=== PATIENT | male | born 1960 | race Two or more races ===

== ENCOUNTER 2021-06-24 12:13 | Outpatient (REF) | payer OTHER, SELFPAY ==
--- NOTE | ~2021-06-24 | XR_ITS ---
EXAMINATION: XR LUMBOSACRAL SPINE WITH OBLIQUES CLINICAL INFORMATION: Low back pain. COMPARISON: None TECHNIQUE: AP, both oblique, and lateral views of the lumbar spine. Lateral view of the lumbosacral junction. FINDINGS: There is normal lumbar lordosis. The vertebral heights, alignment and disc heights are normal. There is no visible acute fracture, dislocation or subluxation seen. On oblique views there is no pars defect or listhesis. There is minimal ventral spondylosis lumbar spine. XR/XR lumbar spine 4V min IMPRESSION: No evidence of acute fracture, dislocation or listhesis. No pars defects seen. There is minimal ventral spondylosis.
== END 2021-06-24 12:14 | disposition home or self-care (01) ==
LOC: HO.XRAY 12:13
PROVIDERS: PCP Nurse Practitioner; Visit Provider Nurse Practitioner
DX: M54.50 Low back pain, unspecified (principal)
CPT/HCPCS: 72110

== ENCOUNTER 2021-07-17 13:29 | Outpatient (REF) | payer OTHER, SELFPAY ==
--- NOTE | ~2021-07-17 | XR_ITS ---
EXAMINATION: XR HAND, RIGHT CLINICAL INFORMATION: Right hand pain. COMPARISON: None TECHNIQUE: PA, lateral, and oblique views of the right hand. FINDINGS: There is no evidence for an acute fracture or dislocation. There is degenerative change here in the MCP joints most noted in the 1st, 2nd and 3rd digit. Chronic erosion in the distal 2nd metacarpal cannot be excluded nor can a chronic erosion of the distal 5th metacarpal. Small bony excrescence dorsally off the 2nd metacarpal of uncertain etiology. This could be degenerative in nature. No osteopenia is present. No convincing evidence for an acute bony erosion. No soft tissue finding. No calcification is seen. XR/XR hand RT min 3V IMPRESSION: Evidence of degenerative changes here and I cannot exclude some chronic erosions as described. No acute finding. There is a small area of bony bulbous excrescence off the distal 2nd metacarpal dorsally of uncertain etiology. This could be degenerative in nature. If further evaluation is warranted in this patient consider MR pre and postcontrast or bone scan.
== END 2021-07-17 13:30 | disposition home or self-care (01) ==
LOC: HO.XRAY 13:29
PROVIDERS: PCP Nurse Practitioner; Visit Provider Nurse Practitioner
DX: G89.29 Other chronic pain (principal); M79.641 Pain in right hand
CPT/HCPCS: 73130

== ENCOUNTER 2021-12-05 14:00 | Outpatient (RCR) | payer OTHER, SELFPAY ==
--- NOTE | 2021-11-10 14:53 | MHC.OT.EP ---
[address] [phone] Occupational Therapy Plan of Care Date of Evaluation: 11/10/21 Diagnosis: Right hand pain; OA Assessment: 61 yo male w/ hx of OA presents w/ B/L hand pain, right worse than left. 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 On assessment, he has good hand range (with intrinsic tightness) and good strength B/L'ly, but reports pain throughout digits, mostly in right MCP and PIP, but also left D3 and D4 PIPs. He will benefit from cont;d therapy services for education of HEP and self mangement of pain and joint protection for improved day to day use. Frequency and Duration: The patient will be seen 2x/wk for for 3 weeks Short Term Goals: Ind w/ HEP Ind w/ use of heat modalities for comfort and improved joint range Pt to report decreased nighttime pain w/ use of joint compression Ind w/ activity modfication techniques Supervisor Of Communications Goals: same as above Treatment Plan: Therapeutic Exercise Therapeutic Activity Home Exercise Program Splinting Patient Education Edema Control ADL Training Paraffin Fluidotherapy MHP Joint Mobilization Soft Tissue Mobilization Kinesiotaping Electronically Signed By: LUPE Marvin/L CHT Please Sign and return to therapist. Thank you once again for your referral.
--- NOTE | 2021-12-05 14:31 | MHC.OT.DC ---
[address] [phone] F: [phone] Occupational Therapy Discharge Note Provider: WILLIE Prado Diagnosis: Right hand pain; OA Date of Surgery: Date of Evaluation: 11/10/21 Date of Discharge: Treatments to Date: 3 Cancellations to Date: No Shows to Date: 1 Discharge Status: Achieved Goals Independent with HEP Discharge Summary: Kenneth was referred to OT w/ B/L hand pain due to OA. 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 Good follow through w/ HEP an understanding of joint protection techniques. Goals met and he will continue w/ self management techniques. Electronically Signed By: Pam Aguilera OTR/L CHT Reviewed/agree with student documentation: Therapist: Please Sign and return to therapist, thank you for your referral.
== END 2021-12-05 14:32 | disposition home or self-care (01) ==
LOC: HO.OT 14:00
PROVIDERS: Visit Provider Nurse Practitioner
DX: M79.641 Pain in right hand (principal)
CPT/HCPCS: 97018; 97110; 97140; 97165

== ENCOUNTER 2023-03-08 09:16 | Outpatient (REF) | payer MEDICAID, SELFPAY ==
[2023-03-08 11:23] LABS: Hematocrit 51.4 % (42.0-52.0); Mean Corpuscular HGB Conc 31.1 g/dl (31.0-36.0); Mean Corpuscular Hemoglobin 27.1 pg (27.0-33.0); Mean Platelet Volume 11.6 fL (9.4-12.4); Platelet Count 201 X10*3/uL (160-400); Red Blood Count 5.91 X10*6/uL (4.60-5.80); Red Cell Distribution Width 14.4 % (11.0-16.0)
[2023-03-08 11:32] LABS: Estimated Average Glucose 111 mg/dL; Hemoglobin A1C 151.9602 umol/L; Hemoglobin A1c % 5.5 % (<6.0)
[2023-03-08 11:36] LABS: Rheumatoid Factor < 13.0 IU/mL (<15.0)
[2023-03-08 11:39] LABS: Alanine Aminotransferase 19 U/L (0-40); Albumin Level 4.3 g/dL (3.5-5.0); Alkaline Phosphatase 106 U/L (39-117); Anion Gap 14 (12-20); Aspartate Amino Transferase 18 U/L (5-37); Bilirubin Total 0.4 mg/dL (0.0-1.0); Blood Urea Nitrogen 12 mg/dL (9-16); C Reactive Protein < 0.10 mg/dL (< or = 0.50); Calcium 9.3 mg/dL (8.4-10.2); Carbon Dioxide 27 mmol/L (22-29); Chloride 104 mmol/L (96-108); Cholesterol 110 mg/dL (<200); Estimated Glomerular Filt Rate > 60; Glucose Random 96 mg/dL (60-115); HDL Cholesterol 34 mg/dL (>40); LDL Cholesterol Calculated 56 mg/dL (<100); Potassium 4.6 mmol/L (3.3-5.1); Sodium 140 mmol/L (135-145); Total Protein 7.6 g/dL (6.5-8.0); Triglycerides 102 mg/dL (<150)
[2023-03-08 11:50] LABS: HBsAGNum1 0.49 S/CO (0.00-0.99); Hepatitis B Surface Antigen Negative (Negative)
[2023-03-08 11:53] LABS: Syphilis Screen Nonreactive (Nonreactive)
[2023-03-08 11:54] LABS: HBS Num1 0.05 mIU/mL (0-7.99); HBc Num1 0.06 S/CO (0.00-0.79); HIV AB/AG Nonreactive (Nonreactive); HIV Num 1 0.05 S/CO (0.00-0.99); Hepatitis B Core Antibody Nonreactive (Nonreactive); ~HepC Num1 0.05 S/CO (0.00-0.79); ~Hepatitis B Surface Antibody NONREACTIVE (Nonreactive); ~Hepatitis C Antibody Nonreactive (Nonreactive)
[2023-03-08 12:01] LABS: TSH reflex Free T4 2.68 uIU/mL (0.32-4.0)
[2023-03-08 12:04] LABS: Creatinine Urine 207.63 mg/dL; Microalbum/Creatinine Ratio Ur 13.9 ug/mg cr (<30)
[2023-03-08 12:06] LABS: Folate 9.4 ng/mL (> or = 4.0); Prostate Specific Antigen 2.83 ng/mL (<0.05-4.0); Vitamin B12 449 pg/mL (200-900)
[2023-03-08 12:32] LABS: Erythrocyte Sedimentation Rate 2 MM/HR (0-15)
[2023-03-08 12:47] LABS: CT PCR NOT DETECTED (Not Detect.); NG PCR NOT DETECTED (Not Detect.)
[2023-03-09 13:29] LABS: Cyclic Citrullinated Peptide <16 UNITS
[2023-03-10 17:43] LABS: TS Negative Control Passed; TS Panel A 0; TS Panel B 0; TS Positive Control Passed; TSpotTB Negative (Negative)
== END 2023-03-08 09:17 | disposition home or self-care (01) ==
LOC: HO.HHCL 09:16
PROVIDERS: Visit Provider Student in an Organized Health Care Education/Training Program
DX: Z00.00 Encounter for general adult medical examination without abnormal findings (principal)
CPT/HCPCS: 0353U; 36415; 80053; 80061; 82043; 82570; 82607; 82746; 83036; 84153; 84443; 85027; 85652; 86140; 86200; 86431; 86481; 86704; 86706; 86780; 86803; 87340; 87389

== ENCOUNTER 2023-04-28 16:24 | Outpatient (REF) | payer MEDICAID, SELFPAY ==
--- NOTE | ~2023-04-28 | XR_ITS ---
EXAMINATION: XR RIGHT SHOULDER XR LEFT SHOULDER, XR LEFT TIBIA/FIBULA CLINICAL INFORMATION: Bilateral shoulder pain, chronic. Leg pain. COMPARISON: None available. TECHNIQUE: 4 views left shoulder. 4 views right shoulder. 2 views left lower leg. FINDINGS: LEFT LOWER LEG: Radiopaque marker placed by the technologist to indicate the area of concern indicated by the patient in the proximal third of the left leg. Degenerative changes on limited views of the knee could be evaluated with dedicated knee radiographs. No gross displaced fracture to correlate with the area of concern indicated by the patient at the proximal third of the tibia/fibula. Faint soft tissue calcifications, possibly vascular. LEFT SHOULDER: Advanced degenerative changes in the acromioclavicular joint with joint space narrowing and hypertrophic change. The bones are diffusely demineralized. Mild degenerative changes in the glenohumeral joint. No abnormal soft tissue calcifications identified adjacent to the humeral head. RIGHT SHOULDER: Advanced degenerative changes in the acromioclavicular joint with joint space narrowing and hypertrophic change. The bones are diffusely demineralized. Mild degenerative changes in the glenohumeral joint. Soft tissue calcifications along the lateral aspect of the acromion. XR/XR shoulder LT min 2V IMPRESSION: 1. Degenerative changes on limited views of the left knee could be evaluated with dedicated knee radiographs. 2. Advanced degenerative changes in bilateral acromioclavicular joints. 3. Mild degenerative changes in the glenohumeral joint. 4. No gross displaced fracture to correlate with the area of concern indicated by the patient at the proximal third of the tibia/fibula. MRI recommended for further evaluation if there is concern for fracture or other underlying pathology.
--- NOTE | ~2023-04-28 | XR_ITS ---
EXAMINATION: XR RIGHT SHOULDER XR LEFT SHOULDER, XR LEFT TIBIA/FIBULA CLINICAL INFORMATION: Bilateral shoulder pain, chronic. Leg pain. COMPARISON: None available. TECHNIQUE: 4 views left shoulder. 4 views right shoulder. 2 views left lower leg. FINDINGS: LEFT LOWER LEG: Radiopaque marker placed by the technologist to indicate the area of concern indicated by the patient in the proximal third of the left leg. Degenerative changes on limited views of the knee could be evaluated with dedicated knee radiographs. No gross displaced fracture to correlate with the area of concern indicated by the patient at the proximal third of the tibia/fibula. Faint soft tissue calcifications, possibly vascular. LEFT SHOULDER: Advanced degenerative changes in the acromioclavicular joint with joint space narrowing and hypertrophic change. The bones are diffusely demineralized. Mild degenerative changes in the glenohumeral joint. No abnormal soft tissue calcifications identified adjacent to the humeral head. RIGHT SHOULDER: Advanced degenerative changes in the acromioclavicular joint with joint space narrowing and hypertrophic change. The bones are diffusely demineralized. Mild degenerative changes in the glenohumeral joint. Soft tissue calcifications along the lateral aspect of the acromion. XR/XR shoulder RT min 2V IMPRESSION: 1. Degenerative changes on limited views of the left knee could be evaluated with dedicated knee radiographs. 2. Advanced degenerative changes in bilateral acromioclavicular joints. 3. Mild degenerative changes in the glenohumeral joint. 4. No gross displaced fracture to correlate with the area of concern indicated by the patient at the proximal third of the tibia/fibula. MRI recommended for further evaluation if there is concern for fracture or other underlying pathology.
--- NOTE | ~2023-04-28 | XR_ITS ---
EXAMINATION: XR RIGHT SHOULDER XR LEFT SHOULDER, XR LEFT TIBIA/FIBULA CLINICAL INFORMATION: Bilateral shoulder pain, chronic. Leg pain. COMPARISON: None available. TECHNIQUE: 4 views left shoulder. 4 views right shoulder. 2 views left lower leg. FINDINGS: LEFT LOWER LEG: Radiopaque marker placed by the technologist to indicate the area of concern indicated by the patient in the proximal third of the left leg. Degenerative changes on limited views of the knee could be evaluated with dedicated knee radiographs. No gross displaced fracture to correlate with the area of concern indicated by the patient at the proximal third of the tibia/fibula. Faint soft tissue calcifications, possibly vascular. LEFT SHOULDER: Advanced degenerative changes in the acromioclavicular joint with joint space narrowing and hypertrophic change. The bones are diffusely demineralized. Mild degenerative changes in the glenohumeral joint. No abnormal soft tissue calcifications identified adjacent to the humeral head. RIGHT SHOULDER: Advanced degenerative changes in the acromioclavicular joint with joint space narrowing and hypertrophic change. The bones are diffusely demineralized. Mild degenerative changes in the glenohumeral joint. Soft tissue calcifications along the lateral aspect of the acromion. XR/XR tibia fibula LT 2V IMPRESSION: 1. Degenerative changes on limited views of the left knee could be evaluated with dedicated knee radiographs. 2. Advanced degenerative changes in bilateral acromioclavicular joints. 3. Mild degenerative changes in the glenohumeral joint. 4. No gross displaced fracture to correlate with the area of concern indicated by the patient at the proximal third of the tibia/fibula. MRI recommended for further evaluation if there is concern for fracture or other underlying pathology.
== END 2023-04-28 16:25 | disposition home or self-care (01) ==
LOC: HO.XRAY 16:24
PROVIDERS: PCP Student in an Organized Health Care Education/Training Program; Visit Provider Student in an Organized Health Care Education/Training Program
DX: M25.511 Pain in right shoulder (principal); M25.512 Pain in left shoulder; G89.29 Other chronic pain; M79.605 Pain in left leg
CPT/HCPCS: 73030; 73590

== ENCOUNTER 2023-09-14 17:15 | Outpatient (REF) | payer MEDICAID, SELFPAY ==
[2023-09-14 17:32] LABS: Appearance Urine Clear; Color Urine Yellow; Glucose Urine UA >=1000 mg/dL (Negative); Leukocyte Esterase Urine Trace (Negative); Nitrite Urine Negative (Negative); PH 5.5 (5.0-9.0); Specific Gravity - Urine >= 1.030 (1.005-1.025); UMIC TRIGGER UACC YES; Urine Blood Small (1+) (Negative); Urine Ketones Negative (Negative); Urine Protein Trace mg/dL (Neg-Trace)
[2023-09-14 17:47] LABS: Bacteria Urine None Seen (None Seen); RBC Urine 0-2 /HPF (0-2); Squamous Epithelial Cell Urine 0-2 /HPF (0-2); UACC Culture Trigger YES; WBC Urine >50 /HPF (0-5)
== END 2023-09-14 17:16 | disposition home or self-care (01) ==
LOC: HO.HHCLNP 17:15
PROVIDERS: Visit Provider Student in an Organized Health Care Education/Training Program
DX: R39.15 Urgency of urination (principal)
CPT/HCPCS: 81001; 87086; 87088; 87186

== ENCOUNTER 2023-10-22 07:57 | Outpatient (REF) | payer MEDICAID, SELFPAY | END 2023-10-22 07:58 | disposition home or self-care (01) | LOC: HO.HOSX 07:57 | DX: Z13.89 Encounter for screening for other disorder (principal) ==

== ENCOUNTER 2023-12-20 11:42 | Outpatient (REF) | payer MEDICAID, SELFPAY | END 2023-12-20 11:43 | disposition home or self-care (01) | LOC: HO.HOSX 11:42 | DX: Z13.89 Encounter for screening for other disorder (principal) ==

== ENCOUNTER 2023-12-21 13:34 | Outpatient (REF) | payer MEDICAID, SELFPAY ==
--- NOTE | ~2023-12-21 | XR_ITS ---
EXAMINATION: Bilateral knee series CLINICAL INFORMATION: Pain in the left knee. Osteoarthritis right knee COMPARISON: X-ray left tibia fibula April 2023. TECHNIQUE: AP upright of both knees. Lateral and patellar views of the left knee. FINDINGS: Left knee: Mild patellofemoral arthrosis. The medial and lateral compartments are normal. No arterial calcification noted posteriorly. No effusion. Right knee Limited AP upright: The medial and lateral compartments are normal. Surrounding bone and soft tissues normal. XR/XR knee LT 3V IMPRESSION: LEFT KNEE: Mild patellofemoral arthrosis. RIGHT KNEE: Limited AP upright view. Normal. Electronically signed by: Dangelo Vora MD 01/11/2024 07:12 AM EDT
--- NOTE | ~2023-12-21 | XR_ITS ---
EXAMINATION: XR SHOULDER, RIGHT CLINICAL INFORMATION: Pain in the right shoulder COMPARISON: X-rays of the right shoulder April 2023 TECHNIQUE: AP external rotation, Grashey, scapular Y, and axillary views of the right shoulder. FINDINGS: [id number] osteoarthritis of the acromioclavicular joint. Joint: Mild osteoarthritis manifest by marginal osteophytes without joint space narrowing. Surrounding bones and soft tissues unremarkable. XR/XR shoulder RT min 2V IMPRESSION: Degenerative changes of the right shoulder. No change. Electronically signed by: Dangelo Vora MD 01/11/2024 07:09 AM EDT
--- NOTE | ~2023-12-21 | XR_ITS ---
EXAMINATION: Bilateral knee series CLINICAL INFORMATION: Pain in the left knee. Osteoarthritis right knee COMPARISON: X-ray left tibia fibula April 2023. TECHNIQUE: AP upright of both knees. Lateral and patellar views of the left knee. FINDINGS: Left knee: Mild patellofemoral arthrosis. The medial and lateral compartments are normal. No arterial calcification noted posteriorly. No effusion. Right knee Limited AP upright: The medial and lateral compartments are normal. Surrounding bone and soft tissues normal. XR/XR knee RT 3V IMPRESSION: LEFT KNEE: Mild patellofemoral arthrosis. RIGHT KNEE: Limited AP upright view. Normal. Electronically signed by: Dangelo Vora MD 01/11/2024 07:12 AM EDT
== END 2023-12-21 13:35 | disposition home or self-care (01) ==
LOC: HO.HOSX 13:34
PROVIDERS: PCP Student in an Organized Health Care Education/Training Program
DX: M25.562 Pain in left knee (principal); M25.511 Pain in right shoulder; M17.11 Unilateral primary osteoarthritis, right knee
CPT/HCPCS: 73030; 73562

== ENCOUNTER 2023-12-30 09:44 | Outpatient (REF) | payer MEDICAID, SELFPAY ==
[2023-12-30 11:50] LABS: Alanine Aminotransferase 15 U/L (0-40); Albumin Level 4.1 g/dL (3.5-5.0); Alkaline Phosphatase 109 U/L (39-117); Anion Gap 10 (12-20); Aspartate Amino Transferase 17 U/L (5-37); Bilirubin Total 0.6 mg/dL (0.0-1.0); Blood Urea Nitrogen 12 mg/dL (9-16); Calcium 9.2 mg/dL (8.4-10.2); Carbon Dioxide 26 mmol/L (22-29); Chloride 108 mmol/L (96-108); Cholesterol 98 mg/dL (<200); Estimated Glomerular Filt Rate > 60; Glucose Random 91 mg/dL (60-115); HDL Cholesterol 35 mg/dL (>40); LDL Cholesterol Calculated 43 mg/dL (<100); Sodium 140 mmol/L (135-145); Total Protein 7.1 g/dL (6.5-8.0); Triglycerides 100 mg/dL (<150)
[2023-12-30 12:17] LABS: Creatinine Urine 125.49 mg/dL; Microalbum/Creatinine Ratio Ur 14.3 ug/mg cr (<30)
[2023-12-30 12:18] LABS: Estimated Average Glucose 114 mg/dL; Hemoglobin A1c % 5.6 % (<6.0)
[2023-12-30 12:25] LABS: Folate 12.6 ng/mL (> or = 4.0); Vitamin B12 446 pg/mL (200-900)
== END 2023-12-30 09:45 | disposition home or self-care (01) ==
LOC: HO.HHCL 09:44
PROVIDERS: Visit Provider Student in an Organized Health Care Education/Training Program
DX: E11.69 Type 2 diabetes mellitus with other specified complication (principal); E78.5 Hyperlipidemia, unspecified
CPT/HCPCS: 36415; 80053; 80061; 82043; 82570; 82607; 82746; 83036

== ENCOUNTER 2024-01-07 10:03 | Outpatient (AMB) | payer MEDICAID, SELFPAY ==
--- NOTE | 2024-01-07 10:09 | MHC.OFFVIS ---
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 Pt states the shoulder pain started years ago with no known injury. Pt states his right shoulder is worse than his left. Pt denies any previous surgeries on his shoulders but states he did have 1 cortisone injection many years which he states only gave him relief for about a week. Pt states his shoulders are more painful when he lifts his arms and at night time when he is sleeping. 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 Patient reports no known injury at the onset of his pain. Patient reports that any heavy lifting or overhead motion exacerbates his pain, and that rest improves it. Patient reports that he did previously have an injection in his right shoulder, with minimal relief. Patient reports that he has tried taking Tylenol and ibuprofen, with minimal effect. The patient also states that his pain worsens at night. Patient has not attempted physical therapy for his shoulders. No numbness or tingling in bilateral upper extremities. No other acute complaints or concerns at this time Review of Systems Const All systems reviewed & are unremarkable except as noted in HPI and below Physical Exam Extrem Other: On inspection, there is no visible deformity of bilateral shoulders No erythema, ecchymosis, evidence of infection noted No lacerations, abrasions, open areas Patient does report tenderness to palpation of the superior aspect of bilateral shoulders, particularly over the AC joint No tenderness to palpation over the greater tuberosity, clavicle shaft, proximal humerus The patient is able to forward flex the shoulders to 100 degrees without difficulty Patient is able to abduct bilateral shoulders to 90 degrees without difficulty Patient can externally rotate bilaterally the shoulders to approximately 50-60 degrees but experiences pain of the extremes of range of motion Negative empty can bilaterally Negative belly press bilaterally Negative lift-off test bilaterally Positive Arora bilaterally, more discomfort on the right Results Reviewed Results Reviewed: X-rays obtained in the office today and independently reviewed by me, Hieu Verdugo PA-C, demonstrate moderate to severe degenerative changes of bilateral acromioclavicular joints. Assessment & Plan Assessment & Plan (1) Bilateral acromioclavicular joint arthritis: Code(s): M19.011 - Primary osteoarthritis, right shoulder; M19.012 - Primary osteoarthritis, left shoulder Category: Medical (2) Impingement syndrome of both shoulders: Code(s): M75.41 - Impingement syndrome of right shoulder; M75.42 - Impingement syndrome of left shoulder Category: Medical Plan 1. Impingement syndrome of bilateral shoulders 2. Acromioclavicular joint arthritis of bilateral shoulders Ongoing for approximately 2-3 years Patient is educated about this condition The patient is educated about the typical recovery course, as well as the treatment options available Patient is not interested in another injection at this time, as he only felt relief for approximately 1 week from previous injection Patient would also like to hold off on any surgery for as long as possible, as well as any further imaging Due to this, the patient is referred to physical therapy for impingement syndrome and AC joint arthritis of bilateral shoulders Patient is amenable to this plan Patient will follow-up in 6-8 weeks after starting PT for reassessment and discussion of further treatment options if necessary, sooner with any acute concerns Orders: Orders PT Evaluation and Treatment 01/07/24 M19.011 - Primary osteoarthritis, right shoulder, M19.012 - Primary osteoarthritis, left shoulder, M75.41 - Impingement syndrome of right shoulder, M75.42 - Impingement syndrome of left shoulder Coding Level of Care Code New Pt Level 3 (04079) Diagnoses Bilateral acromioclavicular joint arthritis M19.011; M19.012 Impingement syndrome of both shoulders M75.41; M75.42
== END 2024-01-07 10:30 | disposition home or self-care (01) ==
PROVIDERS: PCP Student in an Organized Health Care Education/Training Program
DX: M19.011 Primary osteoarthritis, right shoulder (principal); M19.012 Primary osteoarthritis, left shoulder; M75.41 Impingement syndrome of right shoulder; M75.42 Impingement syndrome of left shoulder
CPT/HCPCS: 99203

== ENCOUNTER → 2024-01-07 10:03 | Outpatient (BNVA) | payer MEDICAID, SELFPAY | PROVIDERS: PCP Student in an Organized Health Care Education/Training Program | DX: M19.011 Primary osteoarthritis, right shoulder (principal); M19.012 Primary osteoarthritis, left shoulder; M75.41 Impingement syndrome of right shoulder; M75.42 Impingement syndrome of left shoulder | CPT/HCPCS: 99212 ==

== ENCOUNTER 2024-01-14 10:25 | Outpatient (REF) | payer MEDICAID, SELFPAY ==
--- NOTE | ~2024-01-14 | XR_ITS ---
EXAMINATION: XR KNEE, RIGHT XR KNEE, LEFT CLINICAL INFORMATION: M17.11 - Unilateral primary osteoarthritis, right knee ; bilateral knee pain. COMPARISON: 12/21/2023. TECHNIQUE: 3 views of each knee. FINDINGS: RIGHT KNEE: No fracture, dislocation, or focal bony abnormality. Normal bone mineralization. There is mild tricompartmental osteoarthrosis present with mild tricompartmental joint space narrowing, mild spurring of the tibial spines, and mild marginal productive osteophytes present. There is normal alignment. No joint effusion. Normal soft tissues. LEFT KNEE: No fracture, dislocation, or focal bony abnormality. Normal bone mineralization. There is mild tricompartmental osteoarthrosis present with mild tricompartmental joint space narrowing, mild spurring of the tibial spines, and mild marginal productive osteophytes present. There is normal alignment. No joint effusion. Normal soft tissues. XR/XR knee LT 3V IMPRESSION: 1. Both knees demonstrate a relatively symmetric bilateral tricompartmental osteoarthrosis. 2. No joint effusion. 3. No acute findings. Electronically signed by: Heber Ortiz MD 03/26/2024 09:46 PM EST
--- NOTE | ~2024-01-14 | XR_ITS ---
EXAMINATION: XR SHOULDER, LEFT CLINICAL INFORMATION: M25.512 - Pain in left shoulder COMPARISON: 04/28/2023. TECHNIQUE: Three views of the left shoulder. FINDINGS: No fracture, dislocation, or suspicious bone lesion. Normal alignment. The glenohumeral joint has a normal appearance. The AC joint demonstrates moderate hypertrophic spurring with mild undersurface spurring. There are small subacromial spurs as well. There is mild narrowing of the subacromial space due to the presence of spurs. Cannot exclude outlet stenosis. The Grashey wall view may suggest a significant rotator cuff tear. Remainder of the bony and soft tissue structures appear normal. XR/XR shoulder LT min 2V IMPRESSION: -No acute findings left shoulder. -Degenerative AC joint changes with subacromial spurring, and findings which may suggest significant rotator cuff tear. Electronically signed by: Heber Ortiz MD 03/26/2024 09:39 PM [facility]
--- NOTE | ~2024-01-14 | XR_ITS ---
EXAMINATION: XR KNEE, RIGHT XR KNEE, LEFT CLINICAL INFORMATION: M17.11 - Unilateral primary osteoarthritis, right knee ; bilateral knee pain. COMPARISON: 12/21/2023. TECHNIQUE: 3 views of each knee. FINDINGS: RIGHT KNEE: No fracture, dislocation, or focal bony abnormality. Normal bone mineralization. There is mild tricompartmental osteoarthrosis present with mild tricompartmental joint space narrowing, mild spurring of the tibial spines, and mild marginal productive osteophytes present. There is normal alignment. No joint effusion. Normal soft tissues. LEFT KNEE: No fracture, dislocation, or focal bony abnormality. Normal bone mineralization. There is mild tricompartmental osteoarthrosis present with mild tricompartmental joint space narrowing, mild spurring of the tibial spines, and mild marginal productive osteophytes present. There is normal alignment. No joint effusion. Normal soft tissues. XR/XR knee RT 3V IMPRESSION: 1. Both knees demonstrate a relatively symmetric bilateral tricompartmental osteoarthrosis. 2. No joint effusion. 3. No acute findings. Electronically signed by: Heber Ortiz MD 03/26/2024 09:46 PM [facility]
== END 2024-01-14 10:26 | disposition home or self-care (01) ==
LOC: HO.HOSX 10:25
PROVIDERS: PCP Student in an Organized Health Care Education/Training Program
DX: M25.512 Pain in left shoulder (principal); M17.11 Unilateral primary osteoarthritis, right knee; M25.562 Pain in left knee; M17.0 Bilateral primary osteoarthritis of knee
CPT/HCPCS: 20610; 73030; 73562; 99212; J1010

== ENCOUNTER → 2024-01-14 10:29 | Outpatient (BNV) | payer MEDICAID, SELFPAY | PROVIDERS: PCP Student in an Organized Health Care Education/Training Program; Visit Provider Radiology Diagnostic Radiology | DX: M17.0 Bilateral primary osteoarthritis of knee (principal); M25.512 Pain in left shoulder | CPT/HCPCS: 73030; 73562 ==

== ENCOUNTER 2024-01-14 11:09 | Outpatient (AMB) | payer MEDICAID, SELFPAY ==
--- NOTE | 2024-01-14 11:13 | A.OFFVIS_ITS ---
Intake Visit Reasons: New Prob - B/L knee pain Intake Note: Kenneth is a 63 year old male who presents today for a new problem visit for her bilateral knee pain. Patient reports his pain has been going on for many years. He has difficulty with ambulation, standing, sleeping and kneeling down, if he is kneeling for too long he has to ask for help to get up. He expresses his pain on the anterior and medial aspect of his knee. Tylenol and ibuprofen do not provide adequate relief. Denies recent injury or any kind of medical treatment of bilateral knees. Hx of DM. Health Policy Nurse Required: Yes Health Policy Nurse Language: Biology Specialist Name: [id number] Allergies No Known Allergies Allergy (Verified 01/14/24 13:06) HPI HPI New Prob - B/L knee pain: Details: Patient is a 63-year-old male who presents for evaluation of bilateral knee pain, left worse than right, ongoing for ?many years? the patient reports that this pain makes it difficult for him to ambulate, makes it difficult to rise from a seated position, and increases in pain wth prolonged ambulation or standing. Patient also reports that kneeling down is a part of what he does for work, and then he often has to ask for help or getting up due to his knee pain and stiffness. Patient reports that he has been taking Tylenol and ibuprofen, and that the relief he gets from this is not adequate. Patient denies any insult or injury to the bilateral knees that began this pain. 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 Patient is able to extend the left knee to 0 degrees and flex to approximately 120 degrees but reports discomfort with the extremes of range of motion No ligamentous laxity noted Distal sensation intact Capillary refill brisk Negative So's bilaterally Office Procedures Joint Injection/Aspiration Joint Injection/Aspiration Primary Site: left knee Prep: site was prepped using aseptic technique, ethochloride spray was applied and injection warnings given Injected: 40 mg of, DepoMedrol, with 8 mL of and 1% plain lidocaine Approach Used: anterolateral Procedure: The patient tolerated the procedure well, but had some pain with the injection and there was some relief with the local anesthesia Coding 93787 - Large joint Procedure code (CPT) selection complete Results Reviewed Results Reviewed: X-rays obtained in the office today and independently reviewed by me, Hieu Verdugo PA-C, demonstrate moderate degenerative changes of bilateral knees, worse on the left. Assessment & Plan Assessment & Plan (1) Osteoarthritis of knees, bilateral: Code(s): M17.0 - Bilateral primary osteoarthritis of knee Category: Medical Plan 1. Osteoarthritis of left knee Patient is educated about this condition Patient is educated about the treatment options available The risks and benefits of a steroid injection including but not limited to risk of damage to blood vessels, nerves, tendons, infection, skin bleaching, failure to improve symptoms, increased pain, and possible need for further injections or other intervention were discussed with the patient and the patient wishes to proceed with the steroid injection. Once consent was obtained, I aseptically prepped the area over the anterolateral joint line of the L knee. I then injected the area over the lateral epicondyle with a combination of 40[80/40] mg of dexamethasone and 8 mL of 1% lidocaine. The patient tolerated the procedure well with no complications. If the patient continues to experience symptoms over the following few weeks or months, they can make an appointment to return and discuss alternative treatment measures, such as physical therapy. Of note, the patient did experience a syncopal episode after injection, and the patient states that he had not eaten anything today, so this was likely due to low blood sugar, in combination with fear of needles. Patient was transported to the emergency department after this syncopal episode for further evaluation Follow-up prn Orders: Orders XR knee LT 3V 01/14/24 M25.562 - Pain in left knee XR knee RT 3V 01/14/24 M17.11 - Unilateral primary osteoarthritis, right knee Coding Level of Care Code Est Pt Level 3 (73876) Diagnoses Osteoarthritis of knees, bilateral M17.0 CPT Codes Coding - 42193 Large joint: 34358 - Large joint ([id number])
== END 2024-01-14 12:24 | disposition home or self-care (01) ==
PROVIDERS: PCP Student in an Organized Health Care Education/Training Program
DX: M17.0 Bilateral primary osteoarthritis of knee (principal)
CPT/HCPCS: 20610; 99213

== ENCOUNTER 2024-01-14 12:51 | Emergency (ER) | payer MEDICAID, SELFPAY ==
[2024-01-14 13:04] VITALS: BP 112/70; BP 133/70; PULSE 47; PULSE 48; RESP 12; TEMP 36.4; O2SAT 100; O2SAT 93; BMI 27.8
--- NOTE | 2024-01-14 13:09 | ECG_ITS ---
Test Reason : KOTA Blood Pressure : / mmHG Vent. Rate : 048 BPM Atrial Rate : 048 BPM P-R Int : 176 ms QRS Dur : 104 ms QT Int : 480 ms P-R-T Axes : 025 013 067 degrees QTc Int : 428 ms Sinus bradycardia Minimal voltage criteria for LVH, may be normal variant ( Tripp product ) Septal infarct , age undetermined Abnormal ECG When compared with ECG of 15-JAN-2005 14:37, Septal infarct is now Present Referred By: Generic ED Physician Electronically Signed By:ALEXANDER OTRRES
[2024-01-14 14:21] VITALS: BP 114/70; PULSE 48; RESP 18; TEMP 36.4; O2SAT 96
--- NOTE | 2024-01-14 14:23 | ED_ITS ---
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 He notes after the dose he felt weak, dizzy and felt like he was going to pass out. His symptoms are gone he has had this many times before. He has no symptoms now even with HR in 50s. He states he wants to go home and eat but agrees to some work up. No preceding CP/SOB, recent illness. MD Complaint: generalized weakness (near syncope) Onset (ago): hour(s) (1) Duration: now resolved Location: generalized Migration: none Severity: moderate Relieving factors: rest Exacerbating factors: other (after seeing needle ) Context: history of similar Associated symptoms: denies other symptoms Related Data Home Medications ?Medication ?Instructions ?Recorded ?Confirmed aspirin 81 mg chewable tablet 1 tab PO QAM 01/07/24 atorvastatin 80 mg tablet 80 mg PO QAM 01/07/24 empagliflozin 10 mg tablet 10 mg PO QAM 01/07/24 (Jardiance) famotidine 20 mg tablet 20 mg PO DAILY PRN indigestion 01/07/24 gabapentin 300 mg capsule 300 mg PO BEDTIME 01/07/24 lisinopril 10 mg tablet 10 mg PO QAM 01/07/24 metformin 500 mg tablet,extended 500 mg PO QPM 01/07/24 release 24 hr tamsulosin 0.4 mg capsule 0.4 mg PO BEDTIME 01/07/24 Allergies Allergy/AdvReac Type Severity Reaction Status Date / Time No Known Allergies Allergy Verified 01/14/24 13:06 Review of Systems Review of Systems: Constitutional : No Fever, No Chills, No Fatigue ENT/Mouth : No sore throat, No Rhinorrhea Eyes: No Eye Pain, No Swelling, No Redness Cardiovascular : No Chest Pain, No SOB, No Dyspnea on Exertion Respiratory : No Cough, No Sputum Gastrointestinal : No Nausea, No Vomiting, No Diarrhea, No abdominal Pain Genitourinary : No Dysuria, No Urinary Frequency, No Hematuria, Musculoskeletal : No joint pain, No Myalgias, No Joint Swelling Skin : No Skin Lesions, No rash Neuro : No Weakness, No Numbness, No Dizziness, no Headache Psych : No Anxiety/Panic, No Depression Heme/Lymph: No Bruising, No Bleeding,No Lymphadenopathy Endocrine : No Polyuria, No Polydipsia All other systems reviewed and are negative [facility] Past Medical History Attestation statement: The following information was validated with the patient. 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 Oriented X3. No acute distress. Eyes: Pupils equal, round and reactive to light. ENT: Pharynx normal. Neck: Normal inspection. Neck supple. CVS: Normal heart rate and rhythm. Pulses normal. Respiratory: No respiratory distress. Breath sounds normal. Abdomen: Soft and nontender. Skin: Skin warm and dry. Normal skin color. Normal skin turgor. Extremities: No lower extremity edema. No calf ttp Neuro: Oriented X 3. No motor deficit. No sensory deficit. Course Course Course Narrative: HR likely chronic normal BP and no symptoms Medical Decision Making Medical Decision Making MDM Narrative: 63 yo male with PMH of HLD, CAD, HTN, arthritis, DM, BPH, GERD here with c/o feeling weak and dizzy after having L knee coritsone injection done at this time will need basic labs and EKG states this happens all the time with needles, no illness, GIB and no CP/SOB. Differential Diagnosis Differential Diagnoses: The differential diagnosis associated with the presentation includes anxiety, near syncope Admission/Observation Consideration of admission/observation: Escalation of care including admission/observation considered work up negative stable for DC Lab Data [facility] Lab Attestation statement: I reviewed the patient's lab results. Independent Interpretation I performed an independent interpretation of an: EKG Interpretation: Rate: 48 Rhythm: sinus bradycardia Grulla: normal Normal P waves. Normal DAMARIS. Normal QRS complex. ST T wave : no BINA, inverted t wave aVL qTC: 428 prior studies: no prior The study has been interpreted contemporaneously by me. . External Record Review External record reviewed: Office record Discharge Plan Discharge Clinical Impression: Near syncope Patient Disposition: Home, Self-Care Instructions: Syncope (ED) Additional Instructions: labs reassuring rest and stay hydrated return for any worsening symptoms or concerns Prescriptions: No Action metformin 500 mg tablet extended release 24 hr 500 mg PO QPM Jardiance 10 mg tablet 10 mg PO QAM aspirin 81 mg tablet,chewable 1 tab PO QAM gabapentin 300 mg capsule 300 mg PO BEDTIME tamsulosin 0.4 mg capsule 0.4 mg PO BEDTIME lisinopril 10 mg tablet 10 mg PO QAM atorvastatin 80 mg tablet 80 mg PO QAM famotidine 20 mg tablet 20 mg PO DAILY PRN (Reason: indigestion) Print Language: Tajik
[2024-01-14 14:50] VITALS: BP 111/65; PULSE 57
[2024-01-14 14:52] VITALS: BP 119/64; PULSE 58
[2024-01-14 14:53] VITALS: BP 118/65; PULSE 57
[2024-01-14 14:53] LABS: MANUAL DIFF FLAG NO
[2024-01-14 14:54] LABS: Basophils Percent Auto 0.4 % (0-2); Eosinophils Absolute Auto 0.1 X10*3/uL (0.0-0.4); Eosinophils Percent Auto 1.1 % (0-4); Hematocrit 46.9 % (42.0-52.0); Hemoglobin 15.2 g/dl (14.0-18.0); Imm Gran Abs Auto 0.05 X10*3/uL (0.00-0.03); Imm Gran Pct Auto 0.5 % (0.0-0.4); Lymphocytes Absolute Auto 1.2 X10*3/uL (1.2-4.9); Lymphocytes Percent Auto 11.9 % (20-40); Mean Corpuscular HGB Conc 32.4 g/dl (31.0-36.0); Mean Corpuscular Hemoglobin 27.5 pg (27.0-33.0); Mean Corpuscular Volume 84.8 fL (80.0-98.0); Mean Platelet Volume 10.9 fL (9.4-12.4); Monocytes Absolute Auto 0.5 X10*3/uL (0.1-1.2); Monocytes Percent Auto 5.1 % (2-11); Neutrophils Absolute Auto 8.5 x10*3/uL (2.0-8.3); Platelet Count 156 X10*3/uL (160-400); Red Blood Count 5.53 X10*6/uL (4.60-5.80); Red Cell Distribution Width 14.4 % (11.0-16.0); White Blood Count 10.5 X10*3/uL (4.8-10.8)
[2024-01-14 15:14] LABS: Alanine Aminotransferase 21 U/L (0-40); Albumin Level 4.1 g/dL (3.5-5.0); Alkaline Phosphatase 112 U/L (39-117); Anion Gap 11 (12-20); Aspartate Amino Transferase 18 U/L (5-37); Bilirubin Direct 0.3 mg/dL (0.0-0.5); Bilirubin Total 0.9 mg/dL (0.0-1.0); Blood Urea Nitrogen 16 mg/dL (9-16); C Reactive Protein 0.28 mg/dL (< or = 0.50); Calcium 9.5 mg/dL (8.4-10.2); Carbon Dioxide 26 mmol/L (22-29); Chloride 107 mmol/L (96-108); Creatinine Clr Calc Pharmacy 94.6; Estimated Glomerular Filt Rate > 60; Glucose Random 135 mg/dL (60-115); Lipase 28 U/L (8-78); Magnesium 2.3 mg/dL (1.6-2.6); Potassium 3.7 mmol/L (3.3-5.1); Sodium 140 mmol/L (135-145); Total Protein 7.2 g/dL (6.5-8.0)
[2024-01-14 15:20] LABS: B Type Natriuretic Peptide 17 pg/mL (<100)
[2024-01-14 15:22] LABS: Troponin-I High Sensitivity < 2.7 ng/L (<3.5-35.0)
[2024-01-14 15:33] LABS: Influenza A PCR NEGATIVE (Negative); Influenza B PCR NEGATIVE (Negative); Resp Syncy Virus RNA Qual PCR NEGATIVE (Negative); SARS COV2 PCR INHOUSE NEGATIVE (Negative)
[2024-01-14 16:10] VITALS: BP 114/73; PULSE 60; RESP 16; TEMP 36.4; O2SAT 98
== END 2024-01-14 16:14 | disposition home or self-care (01) ==
PROVIDERS: Emergency Provider Emergency Medicine; PCP Student in an Organized Health Care Education/Training Program
DX: R55 Syncope and collapse (principal); R00.1 Bradycardia, unspecified; R06.02 Shortness of breath; Z03.818 Encounter for observation for suspected exposure to other biological agents ruled out; Z79.899 Other long term (current) drug therapy
CPT/HCPCS: 0241U; 36415; 80048; 80076; 83690; 83735; 83880; 84443; 84484; 85025; 86140; 93005; 99283; 99284

== ENCOUNTER 2024-02-01 10:45 | Outpatient (AMB) | payer MEDICAID, SELFPAY ==
--- NOTE | 2024-02-01 10:46 | A.OFFVIS_ITS ---
Vital Signs 02/01/24 10:47 Height 5 ft 8 in Weight 182 lb BMI 27.7 Intake Visit Reasons: New prob- Left hand catching Intake Note: Kenneth is a 63 year old right hand dominant male who presents today with a new problem of LEFT middle finger and LEFT ring finger locking that began about 3 years ago. Patient states it is painful to make a closed fist. Denies numbness and tingling. Has not tried braces, injections, or OT. Denies prior surgeries to the LEFT hand. He reports a LEFT ring finger injury sustained while playing basketball about 40 years ago. Patient is not interested in injections today. 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 He finds himself dropping items. Patient states he has not had an EMG done for upper extremities. Welfare Administrator Required: No Allergies No Known Allergies Allergy (Verified 02/01/24 10:58) HPI HPI New prob- Left hand catching: Details: Kenneth is a 63 year old right hand dominant Diabetic man who presents with complaints of left hand locking. He complains of painful catching of the left middle & ring fingers. He says this occurs when trying to make a fist after his fingers were extended. he denies any locking when he has made a fist. He reports pain when trying to make a fist and says this limits his function. He says this has been present for ~3 years now and he denies any prior treatment options. He denies any prior treatment, and denies any NCS. 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 Review of Systems Const All systems reviewed & are unremarkable except as noted in HPI and below Physical Exam Vital Signs: BMI result Body Mass Index 27.7 Const General: cooperative, healthy appearing and no acute distress Orientation/consciousness: patient oriented x3 HEENT Head: Yes normocephalic and Yes atraumatic Eyes EOM: EOMs intact bilaterally Resp Effort & Inspection: normal respiratory effort and able to speak in complete sentences Cardio Jugular venous distension: no JVD Skin General skin exam: turgor normal Rashes: no rashes Neuro General: patient oriented x3 Extrem Other: Evaluation of Bilateral Upper Extremity: The patient is alert, oriented, and in no acute distress Neuro: Median, Ulnar, Radial nerves motor and sensory intact and sensation is normal to the tips of all digits Vascular: Cap refill brisk ROM: He can make a fist and extend all his digits Visible & palpable locking & catching of the left middle & ring fingers These are not trigger fingers. He has some dorsal subluxation of the lateral bands at the PIP joint with full extension/mild hyper extension of the PIP joints. The PIP joints are not visibly hyper extended, however the dorsal subluxation of the lateral bands then makes it difficult for him to initiate flexion actively at the PIP joints. What we see when he brings his left middle and ring fingers into full extension, is that when he then tries to initiate flexion we see active flexion at the D IP joints with inability initially for the PIP joints to follow into flexion. Then we see a sudden snap and the PIP joint is then able to flex as the lateral bands snap over the rotational axis of the PIP joints. He is then able to make a tight fist. No subluxation of the extensor mechanism at the MCP joints. No flexor tendon trigger fingers. He does have some generalized arthritic changes in multiple PIP and D IP joints Skin: No lacerations or abrasions. General: No Ecchymosis. No Erythema or evidence of infection. Psych Appearance: grossly normal Affect: normal affect Attitude: cooperative Assessment & Plan Assessment & Plan (1) Holderness-neck deformity of left finger(s): Comment: Early MF & RF Code(s): M20.032 - Holderness-neck deformity of left finger(s) Category: Medical Plan Assessment & Plan: 1. Left middle finger Dorsal subluxation of lateral band at PIP joints, Causing difficulty to initiate flexion from extension, and a snapping sensation 2. Left ring finger Dorsal subluxation of lateral bands at PIP joints, Causing difficulty to initiate flexion from extension, and a snapping sensation I educated him about this condition I discussed operative and non-operative treatment options I recommend silver-ring splints and activity modification I showed him silver-ring splints that can be purchased online, he should wear these with daily activities. He should remove this when at home at rest, and at night I discussed activity modification, he should work to maintain his ROM, and avoid bringing his middle & ring fingers into full extension He can follow up prn Please note that greater than 30 minutes was spent with this patient going over the history, evaluating the patient and radiographs, formulating possible treatment options, discussing them with the patient, and documenting the visit. Scribed for Carolyn Sierra MD by Avni Grimes, medical claims assistant, on 02/01/24 at 11:25 AM, EST. Coding Level of Care Code New Pt Level 3 (94711) Diagnoses Holderness-neck deformity of left finger(s) M20.032
[2024-02-01 10:47] VITALS: BMI 27.7
== END 2024-02-01 11:36 | disposition home or self-care (01) ==
PROVIDERS: PCP Student in an Organized Health Care Education/Training Program; Visit Provider Orthopaedic Surgery
DX: M20.032 Swan-neck deformity of left finger(s) (principal)
CPT/HCPCS: 99214

== ENCOUNTER → 2024-02-01 10:45 | Outpatient (BNVA) | payer MEDICAID, SELFPAY | PROVIDERS: PCP Student in an Organized Health Care Education/Training Program; Visit Provider Orthopaedic Surgery | DX: M20.032 Swan-neck deformity of left finger(s) (principal) | CPT/HCPCS: 99212 ==

== ENCOUNTER 2024-03-12 18:05 | Outpatient (REF) | payer MEDICAID, SELFPAY ==
--- NOTE | ~2024-03-12 | MR_ITS ---
EXAMINATION: MR BRAIN WITHOUT CONTRAST CLINICAL INFORMATION: Worsening memory. COMPARISON: None available. TECHNIQUE: MRI of the brain was obtained using routine sequences without contrast. FINDINGS: No focal restricted diffusion is demonstrated to suggest acute or subacute cerebral ischemia. No evidence of acute or chronic hemorrhagic products on heme-sensitive imaging. Scattered and partially confluent periventricular, deep white matter, and brainstem T2 FLAIR hyperintensities consistent with moderate underlying microangiopathy. Proportional prominence of the ventricles and sulcal spaces without evidence of obstructive hydrocephalus. No abnormal mass effect. No midline shift. Normal appearance of the pituitary gland. Normal positioning of the cerebellar tonsils. Normal arterial and venous vascular flow voids are present. Normal, homogeneous marrow signal. Mild mucosal thickening of the paranasal sinuses. No signal abnormalities within the mastoids. MR/MR head/brain wo con IMPRESSION: 1. No acute intracranial abnormalities. 2. Moderate underlying microangiopathy and generalized cerebral volume loss. Electronically signed by: Deejay Harrell DO 04/05/2024 06:56 AM EST
== END 2024-03-12 18:06 | disposition home or self-care (01) ==
LOC: HO.MRI 18:05
PROVIDERS: PCP Student in an Organized Health Care Education/Training Program; Visit Provider Student in an Organized Health Care Education/Training Program
DX: R41.3 Other amnesia (principal)
CPT/HCPCS: 70551

== ENCOUNTER 2024-04-10 09:56 | Outpatient (REF) | payer MEDICAID, SELFPAY ==
[2024-04-10] MEDS: iohexoL 350 MG/ML 100 ML INFUS..BTL 65 ML IV (10:30)
[2024-04-11 08:00] LABS: GFR POC > 60
== END 2024-04-10 09:57 | disposition home or self-care (01) ==
LOC: HO.CT 09:56
PROVIDERS: PCP Student in an Organized Health Care Education/Training Program; Visit Provider Student in an Organized Health Care Education/Training Program
DX: R59.0 Localized enlarged lymph nodes (principal)
CPT/HCPCS: 71260; 82565; Q9967

== ENCOUNTER → 2024-04-10 09:58 | Outpatient (BNV) | payer MEDICAID, SELFPAY | PROVIDERS: PCP Student in an Organized Health Care Education/Training Program; Visit Provider Radiology Diagnostic Radiology | DX: R59.0 Localized enlarged lymph nodes (principal) | CPT/HCPCS: 71260 ==

== ENCOUNTER 2024-06-19 10:05 | Outpatient (AMB) | payer MEDICAID, SELFPAY ==
--- NOTE | 2024-06-19 10:10 | A.OFFVIS_ITS ---
Vital Signs 06/19/24 10:14 Height 5 ft 8 in Weight 186 lb BMI 28.3 BP 138/77 Blood Pressure Location Lt brachial Position Sitting Pulse 59 Intake Visit Reasons: abnormal CT chest Intake Note: Patient referred by pcp Jovanna BERG for abnormal chest CT, mediastinal lymphadenopathy, worsening on recent scan. Patient c/o: joint pain, constant pain on lt arm, dizziness. Denies nausea, vomiting. Chest CT: 04-10-2024 Meat Puller Required: No Accompanied by: Self / Same As Patient Allergies No Known Allergies Allergy (Verified 06/19/24 10:16) HPI Comments Details: Patient presents for evaluation of progressive mediastinal adenopathy of unknown etiology. Patient has not noticed any lumps or swellings elsewhere in his body. He does have night sweats and he has lost 20 lb weight over the last several months. He does not have any fever or chills. Patient otherwise tolerating a diet. He has regular bowel habits. He does not have any other known cancers or other pathologies. 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 Chest Other: Chest breath sounds bilaterally, HS 1 in 2 GI Other: Abdomen moderately corpulent, soft, benign Extrem Other: Extremities grossly intact Assessment & Plan Assessment & Plan (1) Mediastinal adenopathy: Code(s): R59.0 - Localized enlarged lymph nodes Category: Surgical Plan I discussed the case with Dr. Tsai, pathology. My concern is that the patient may have lymphoma. I discussed with her whether EBUS or mediastinoscopy would be preferred regarding adequate tissue for immunohistochemical studies among other things. She recommended the mediastinoscopy because she would have more adequate tissue to perform a variety of required test should this be lymphoma. Mediastinoscopy was reviewed with the patient and included the risks, benefits and alternatives of the procedure which are bleeding, infection, numbness, pain, scarring and the patient wishes to proceed. All questions answered. Arrangements were made for this on a day which is convenient for him. Coding Level of Care Code New Pt Level 5 (79718) Diagnoses Mediastinal adenopathy R59.0
[2024-06-19 10:14] VITALS: BP 138/77; PULSE 59; BMI 28.3
--- OUTSIDE RECORDS SUMMARY | 2024-06-19 11:13 | XMS_ITS | Encounter Summary ---
Author Organization [employer] Address [address] [place] [address] Care Team Providers Care Cross Country And Track And Field Coach Name Role Phone Ana María Greenwood MD Primary Care Pro vider Reason for Visit * Reason Onset Date Comments July06/13/2024 Encounter Details Date Type Department Care Team (Late st Contact Info) Description 06/13/2024 Telephone [facility] MEDICINE [address], [place] [id number] Kayla Ramos [place] July Social History Tobacco Use Types Packs/Day Years Used Date Smoking Tobacco: Never Smokeless Tobacco: Never Alcohol Use Standard Drinks/Week Comments Yes 0 (1 standard drink = 0.6 oz pur e alcohol) beers socially Depression Answer Date Recorded Patient Health Questionnaire-9 Score 13 12/06/2023 Patient Health Questionnaire-9 Score 13 12/06/2023 Last PHQ-9: Questionnaire Data Not on file 0 12/06/2023 Housing Stability Answer Date Recorded What is your housing situation today? I do not have housing (Staying with others, in a hotel, in a detention, living outside on the street, on a beach, in a car, or in a park 01/14/[address] you li ve. Do you have problems with any of the following? None of the above 01/14/2024 Food Insecurity Answer Date Recorded Within the past 12 months, y ou worried that your food would run out before you got money to buy more: Never True 04/22/2023 Within the past 12 months,th e food you bought just didn't last and you didn't have enough money to get more: Never True Transportation Answer Date Recorded In the past 12 months, has l ack of transportation kept you from medical appts, meetings, work or from getting things needed for daily living? No 04/22/2023 Utilities Answer Date Recorded In the past 12 months, has t he electric, gas, oil or water company threatened to shut off services in your home? No 04/22/2023 Depression Answer Date Recorded Patient Health Questionnaire-2 Score 4 02/10/2024 Internet Access Answer Date Recorded Internet Access Q1 Yes 01/14/2024 Internet Access Q2 Not on file 01/14/2024 Sex and Gender Information Value Date Recorded Sex Assigned at Male 02/23/2022 10:20 AM EDT Legal Sex Male 10:20 AM EDT Gender Identity Male 02/23/2022 10:20 AM EDT Sexual Orientation Straight 02/23/2022 10 :20 AM EDT documented as of this encounter Miscellaneous Notes * Telephone Encounter - Kayla Ramos MA - 06/13/2024 9:20 AM EST Telephone call to patient to schedule the following recall: Visit type: Physical Appointment notes: Physical Patient agree to appointment on 08/03/24 at 9:00 AM with Chas. documented in this encounter Plan of Treatment Upcoming Encounters Date Type Department Care Team (Late st Contact Info) Description 06/29/2024 1:00 PM EST Office Visit [facility] ADULT DENTAL [address] [place] [phone] Temi Gonzalez [address] [place] [address] 08/03/2024 9:00 AM EDT Office Visit [facility] MEDICINE [address] [place] [id number] Ana María Greenwood MD [address] [place] [address] documented as of this encounter Goals Goal Patient Goal Type Associated Problems Recent Progress Patient-Stated? Author Blood Pressure < 140/90 Blood Pressure 136/82(2023 9:09 AM EST) No Davis Garber, Claire Hemoglobin A1c < 7 Result Component 5.6( 4 9:49 AM EDT) No Davis Garber, PharmD documented as of this encounter Visit Diagnoses Not on filedocumented in this encounter Additional Health Concerns Assessment Noted Time PHQ-9 Depression Total Score: 13 024 4:50 PM EDT documented as of this encounter Care Teams Cross Country And Track And Field Coach Relationship Specialty Start Date End Date Ana María Greenwood MD [address] [place] [id number] PCP - General Internal Medicine 11/05/22 documented as of this encounter
--- OUTSIDE RECORDS SUMMARY | 2024-06-19 11:13 | XMS_ITS | Encounter Summary ---
Author Organization [employer] Address [address] [facility] [address] [place] [address] Care Team Providers Care Brand Manager Name Role Phone Ana María Greenwood MD Primary Care Pro vider Reason for Visit * Reason Comments Med Refill Encounter Details Date Type Department Care Team ([facility] st Contact Info) Description 07/24/2023 Refill [facility] MED[facility] [address] [place], [place] [phone] Ana María Greenwood MD [address] [place], [place] [phone] Social History Tobacco Use Types Packs/Day Years Used Date Smoking Tobacco: Never Smokeless Tobacco: Never Alcohol Use Standard Drinks/Week Comments Yes 0 (1 standard drink = 0.6 oz pur e alcohol) beers socially Depression Answer Date Recorded Patient Health Questionnaire-9 Score 15 03/05/2023 Patient Health Questionnaire-9 Score 15 03/05/2023 Last PHQ-9: Questionnaire Data Not on file 1 05/05/2022 Housing Stability Answer Date Recorded What is your housing situation today? I have remy degroot 04/22/[address] you li ve. Do you have problems with any of the following? None of the above 04/22/2023 Food Insecurity Answer Date Recorded Within the [...] Answer Date Recorded Patient Health Questionnaire-2 Score 6 03/05/2023 Sex and Gender Information Value Date Recorded Sex Assigned at Male 02/23/2022 10:20 AM EDT Legal Sex Male 10:20 AM EDT Gender Identity Male 02/23/2022 10:20 AM EDT Sexual Orientation Straight 02/23/2022 10 :20 AM EDT documented as of this encounter Plan of Treatment Upcoming Encounters Date Type Department Care Team (Late st Contact Info) Description 06/29/2024 1:00 PM EST Office Visit [facility] [address] [place] [phone] Carlos, Temi [address] [place] [address] 08/03/2024 9:00 AM EDT Office Visit [facility] MED[facility] [address] [place] [address] Ana María Greenwood MD [address] [place], [place] [phone] documented as of this encounter Goals Goal Patient Goal Type Associated Problems Recent Progress Patient-Stated? Author Blood Pressure < 140/90 Blood Pressure 136/82(2023 9:09 AM EST) No Davis Garber, PharmD Hemoglobin A1c < 7 Result Component 5.6( 9:49 AM EDT) No Davis Garber, PharmD documented as of this encounter Visit Diagnoses Not on filedocumented in this encounter Additional Health Concerns Assessment Noted Time PHQ-9 Depression Total Score: 15 023 7:53 AM EST documented as of this encounter Care Teams Brand Manager Relationship Specialty Start Date End Date Ana María Greenwood MD [address] [place] [address] PCP - General Internal Medicine 11/05/22 documented as of this encounter
--- OUTSIDE RECORDS SUMMARY | 2024-06-19 11:13 | XMS_ITS | Encounter Summary ---
Author Organization [employer] Address [address] [facility] [address] [place] [address] Care Team Providers Care Hand Touch Up Painter Name Role Phone Ana María Greenwood MD Primary Care Pro vider Reason for Visit * Reason Onset Date Comments Results 06/10/2024 Referral 06/10/2024 Encounter Details Date Type Department Care Team ([facility] st Contact Info) Description 06/10/2024 Telephone [facility] MED[facility] [address] [place] [address] Betty Nash RN [address] [place], [place] [phone] Results; Referral Social History Tobacco Use Types Packs/Day Years [...] with others, in a hotel, in a mcc, living outside on the street, on a [...] encounter Miscellaneous Notes * Telephone Encounter - Betty Nash RN - 06/10/2024 10:30 AM EST Telephone call placed to pt regarding below message. Very long phone call with educational interpreter via [employer] d/t pt requiring extensive explanations. Pt was not aware that he had enlarged lymph nodes, didn't know why he was doing follow up imaging, didn't know what lymph nodes are. Pt had many questions. Answered them all. Informed some lymph nodes grew in size last CT so recommend a referral to thoracic surgeon but this DOES NOT MEAN HE NEEDS SURGERY. This is the specialist that will look and see what next steps are. Pt reports that he started not feeling well yesterday. Had dizziness and cough, is wondering if it is related to his lymph nodes. Informed that influenza, covid, and RSV are very prevalent right now. I don't think Sx are related to his lymph nodes. Advised if he continues to feel ill,come to [facility]. Advised to let us know if he doesn't hear from specialist with an appt within 2 weeks.Pt states, I'm not good at calling places and reports wanting a follow up with PCP and that no one has called him to schedule one. Pt aware that PCP was on leave but thinks she should be back soon.Informed I would send message to [place] to schedule him a follow up when she is back. Pt verbalized understanding and denied having any further questions or concerns at this time. Please let patient know that I am placing referral for thoracic surgery eval. This is not because I think that he definitively needs surgery but because I think he would benefit from a possible biopsy for enlarged lymph nodes. He has been getting see CT scans to monitor these and on most recent imaging some of them had grown in size. documented in this encounter Plan of Treatment Upcoming Encounters Date Type Department Care Team (Late st Contact Info) Description 06/29/2024 1:00 PM EST Office Visit [facility] ADULT DENTAL [address] [place], [place] [phone] Carlos, Temi [address] [place] [address] 08/03/2024 9:00 AM EDT Office Visit [facility] MEDICINE [address] [place], [place] [phone] Ana María Greenwood MD [address] [place] [address] documented as of this encounter Goals Goal Patient Goal Type Associated Problems Recent Progress Patient-Stated? Author Blood Pressure < 140/90 Blood Pressure 136/82(2023 9:09 AM EST) No Davis Garber, PharmD Hemoglobin A1c < 7 Result Component 5.6( 9:49 AM EDT) No Davis Garber, RachelD documented as of this encounter Visit Diagnoses Not on filedocumented in this encounter Additional Health Concerns Assessment Noted Time PHQ-9 Depression Total Score: 13 024 4:50 PM EDT documented as of this encounter Care Teams Hand Touch Up Painter Relationship Specialty Start Date End Date Ana María Greenwood MD [address] [place] [address] PCP - General Internal Medicine 11/05/22 documented as of this encounter
--- OUTSIDE RECORDS SUMMARY | 2024-06-19 11:13 | XMS_ITS | Clinical Summary ---
Author Organization [employer] Address [address] [facility] [address] [place] [address] Care Team Providers Care Paradi Operator Name Role Phone Ana María Greenwood MD Primary Care Pro vider Allergies No known active allergies Medications * This document contains information received from the source organization and may not represent a complete record from that organization. Blood Glucose Monitoring Suppl (FreeStyle glucose monitoring) kit 1 each. Test 1 time by intradermal route 3 times daily. Active Blood Pressure kitIndications:Ess ential hypertension 1 kit in the morning. 1 kit 01/21/20 23 Active glucose blood (FREESTYLE LITE) test stripIndications:T ype 2 diabetes mellitus with hyperlipidemia (CMS/HCC) ([facility]) Use as directed twice daily 100 each 01/21/20 23 Active Blood Glucose Monitoring Suppl (FreeStyle Lindsay Lite) w/Device kit Use to test blood sugar bid dx dm 1 kit 06/03/19 24 Active hydrocortisone (Anusol-HC) 2.5 % rectal cream Insert into the rectum 2 times daily. 28 g 07/22/19 24 Active cetirizine (ZyrTEC) 10 MG tablet Take 1 tablet (10 mg) by mouth in the morning. 30 tablet 1 07/22/19 24 Active carvedilol (Coreg) 3.125 MG tabletIndications: History of non-ST elevation myocardial infarction (NSTEMI) TAKE 1 TABLET BY MOUTH TWICE DAILY IN THE MORNING AND IN THE EVENING 180 tablet 1 11/02/19 24 Active Alcohol Swabs (Alcohol Prep) 70 % padsIndications:Ty pe 2 diabetes mellitus with hyperlipidemia (CMS/HCC) ([facility]) USE WHEN TEST BLOOD SUGAR 100 each 11 01/21/20 24 Active gabapentin (Neurontin) 300 MG capsuleIndications :Chronic pain of both shoulders TAKE 1 CAPSULE BY MOUTH AT BEDTIME 30 capsule 2 02/14/20 24 Active DULoxetine (Cymbalta) [address] capsuleIndications :Depression, unspecified depression type TAKE 1 CAPSULE BY MOUTH EVERY MORNING 30 capsule 2 02/14/20 24 Active FreeStyle lancetsIndications :Type 2 diabetes mellitus with hyperlipidemia (CMS/HCC) (CMS/HCC) 1 each by Other route at noon and 1 each in the evening. TEST BLOOD SUGAR TWICE A DAY. 100 each 11 03/08/20 24 Active ivermectin (Stromectol) 3 MG tablet TAKE 1 TABLET BY MOUTH ONCE PER WEEK Active tamsulosin (Flomax) 0.4 MG 24 hr capsule TAKE 1 CAPSULE BY MOUTH AT BEDTIME 90 capsule 04/13/20 24 Active metFORMIN XR (Glucophage-XR) 500 MG 24 hr tablet TAKE 1 TABLET BY MOUTH EVERY EVENING WITH FOOD 90 tablet 04/20/20 24 Active lisinopril 10 MG tabletIndications: Essential hypertension TAKE 1 TABLET BY MOUTH EVERY MORNING 90 tablet 04/20/20 24 Active atorvastatin (Lipitor) 80 MG tabletIndications: History of non-ST elevation myocardial infarction (NSTEMI) TAKE 1 TABLET BY MOUTH EVERY MORNING 90 tablet 04/20/20 24 Active Aspirin Low Dose 81 MG chewable tabletIndications: Old myocardial infarction TAKE 1 TABLET BY MOUTH EVERY MORNING (CHEW) 90 tablet 04/20/20 24 Active Jardiance 10 MGIndications:Type 2 diabetes mellitus with hyperlipidemia (CMS/HCC) (CMS/HCC) TAKE 1 TABLET BY MOUTH EVERY MORNING 90 tablet 04/25/20 24 Active Active Problems Problem Noted Date Diagnosed Date Gingival bleeding 01/27/2024 Dental calculus 01/27/2024 Advanced periodontitis 01/27/2024 Missing teeth, acquired 01/27/2024 Nocturia 09/14/2023 Housing insecurity 03/04/2023 Overweight (BMI 25.0-29.9) 03/04/2023 Lymphadenopathy, thoracic 03/04/2023 Polyarthralgia 03/04/2023 Depression 03/04/2023 Assessment & Plan (03/05/2023 8:24 AM EST): Assessment: Patient presents with depressive symptoms. No risk for self-harm, SI, or HI. Reason for visit was to assess symptoms, provide support, and offer referrals/resources. Symptoms are present in the context of losing job, inability to pay rent, and multiple health conditions. Provided psychoeducation around depression and how to cope with symptoms. An OP therapy referral will be completed. Patient declined medication management at this time. PCP will complete referral for case management. At this time Kenneth Domingo meets criteria for Visit Diagnoses: Problem List Items Addressed This Visit Other Depression Patient ready to address current needs Yes Strengths include being in the actions stage. PLAN: 1. Follow up with [facility]: Not recommended for follow-up 2. Patient goal is obtain assistance in paying rent or obtaining a smaller apartment 3. Behavioral Recommendations a. Utilize coping skills provided b. Engage in therapy once established c. Comply with case management d. Reach out to [facility] if additional support is needed Cardiomyopathy 03/04/2023 History of cocaine use 03/04/2023 Health care maintenance 03/04/2023 Insomnia 01/20/2023 Essential hypertension 05/25/2021 History of non-ST elevation myocardial infarctio n (NSTEMI) 02/21/2021 Type 2 diabetes mellitus with hyperlipidemia (CM S/HCC) 03/24/2018 Resolved Problems Problem Noted Date Diagnosed Date Resolved Date Leg pain 04/23/2023 07/23/2023 Encounters Date Type Department Care Team Description 06/13/2024 Telephone [facility] [address] [place] [address] Kayla Ramos MA Susie Recall 06/10/2024 Telephone [facility] [address] [place] [address] Betty Nash RN Results; Referral 06/09/2024 Orders Only [facility] [address] [place] [address] [address]ovanna Gaona ANP Abnormal CT of the chest (Primary Dx) 05/18/2024 Outside Procedure [facility] [address] [place] [address] Luciano, Shanti, OD Presbyopia (Primary Dx) 05/16/2024 4:00 PM EST Office Visit [facility] [address] [place], [place] [phone] Luciano, Shanti, OD Hyperopia of both eyes (Primary Dx) 04/23/2024 Refill [facility] [address] [place] [address] Ana María Greenwood MD Type 2 diabetes mellitus with hyperlipidemia ([facility]/HCC) ([facility]) 04/19/2024 Refill [facility] [address] [place] [address] Angelina Juarez MD Essential hypertension; History of non-ST elevation myocardial infarction (NSTEMI); Old myocardial infarction 04/13/2024 Refill [facility] [address] [place] [address] Ana María Greenwood MD 04/10/2024 Orders Only [facility] [address] [place] [address] Ana María Greenwood MD 04/03/2024 10:00 AM EST Office Visit [facility] [address] [place] [address] Shanti Wolf, OD Type 2 diabetes mellitus without retinopathy ([facility]) (Primary Dx); Dry eyes; Early cataracts, bilateral; Presbyopia 04/03/2024 Travel from Last 3 Months Immunizations Name Administration Dates Next Due HepB-CpG 07/28/2023,06/23/2023 Influenza injectable quadriv alent preservative free 03/03/2023,06/02/2022,02/21/2021 Influenza, seasonal, injecta ble, preservative free 02/10/2024 Pfizer Covid-19 Vaccine 12+ 02/10/2024,1 05/08/2022,03/04/2021,2020,06/06/2020 Pfizer Covid-19 Vaccine 12+ Bivalent 06/02/2022 Pneumococcal Conjugate PCV 20 03/03/2023 RSV Bivalent 03/30/2023 Tdap 10/29/2021 Zoster, Recombinant 06/23/2023,04/22/2023 Family History Medical History Relation Name Comments HTN Daughter HTN Father Parkinson dx Father DM2,heart disease Mother kidney disease -unspecified Son Relation Name Status Comments Daughter Father Mother Son Social History Tobacco Use Types Packs/Day Years Used Date Smoking Tobacco: Never Smokeless Tobacco: Never Tobacco Cessation:Counseling Given: Not Answered Alcohol Use Standard Drinks/Week Comments Yes 0 [...] with others, in a hotel, in a nursing home, living outside on the street, on a [...] Orientation Straight 02/23/2022 10 :20 AM EDT Last Filed Vital Signs Vital Sign Reading Time Taken Comments Blood Pressure 136/82 03/16/2024 9:09 AM EST Pulse 60 02/10/2024 11:22 AM EDT Temperature 36.3 ??C (97.4 ??F) 02/10/2024 11:22 AM E DT Respiratory Rate 20 02/10/2024 11:22 AM EDT Oxygen Saturation 98% 12/02/2023 11:10 AM EDT Inhaled Oxygen Concentration - - Weight 84.8 kg (187 lb) 02/10/2024 11:22 AM EDT Height 172.7 cm (5' 8 ) 02/10/2024 11:22 AM EDT Body Mass Index 28.43 02/10/2024 11:22 AM EDT Plan of Treatment Upcoming Encounters Date Type Department Care Team (Late st Contact Info) Description 06/29/2024 1:00 PM EST Office Visit [facility] [address] [place] [address] [phone] CarlosFlorinTemi [address] [place] [address] 08/03/2024 9:00 AM EDT Office Visit [facility] [address] [place] [phone] Ana María Greenwood MD [address] [place], [place] [phone] Health Maintenance Due Date Last Done Comments CT Colonography 1962 FIT DNA/Cologuard 1962 FIT 1962 FOBT 1960 Sigmoidoscopy 1962 Diabetes: Foot Exam 1972 Alcohol/Substance Use Screening 1974 Hepatitis A Vaccines (1 of 2 - Risk 2-dose series) 1981 Colonoscopy 10/30/2016 10/31/2015 Colorectal Cancer Screening 10/30/2016 Diabetes: Hemoglobin A1C 03/30/2024 024, 12/02/2023, 03/08/2023, Additional history exists Dental Oral Exam 07/12/2024 01/12/2024, 03/2017, 08/14/2016, Additional history exists Dental Prophylaxis 07/28/2024 01/27/2024, 04/06/2017 Depression Monitoring (PHQ-9) 08/10/2024 02/10/2024, 12/06/2023 Diabetes: Urine Protein Screening 12/29/2024 12/30/2023, 03/08/2023, 06/18/2021 Lipid Panel 12/29/2024 12/30/2023, 02/24, 03/04/2021 SDOH Screening 01/13/2025 01/14/2024 Depression Screening 02/09/2025 02/10/2024, 12/06/19 Dental X-Ray: Bitewings 03/17/2025 03/16/20 24, 03/09/2024, 01/12/2024, Additional history exists Tobacco Screening 04/07/2025 04/07/2024 Eye Exam 04/03/2026 04/03/2024, 12/2023, 04/03/2024, Additional history exists Dental X-Ray: Full Mouth 01/12/2027 024, 08/13/2016, 12/10/2008 DTaP/Tdap/Td Vaccines (2 - Td or Tdap) 10/30/2031 10/29/2021 Pneumococcal Vaccine: 50+ Years Completed 03/03/2023 HIV Screening Completed 03/08/2023 Hepatitis C Screening Completed 03/08/2023 RSV Patients and Patients Aged 60 years or older Completed 03/30/2023 Zoster Vaccines Completed 06/23/2023, 04/22/2023 Hepatitis B Vaccines Completed 07/28/2023, 06/23/19 COVID-19 Vaccine Completed 02/10/2024, , 06/02/2022, Additional history exists Influenza Vaccine Completed 02/10/2024, , 06/02/2022, Additional history exists HIB Vaccines Aged Out No longer eligi ble based on patient's age to complete this topic HPV Vaccines Aged Out No longer eligi ble based on patient's age to complete this topic IPV Vaccines Aged Out No longer eligi ble based on patient's age to complete this topic Meningococcal Vaccine Aged Out No saulo shailesh eligible based on patient's age to complete this topic RSV under 20 months Aged Out No longe r eligible based on patient's age to complete this topic Rotavirus Vaccines Aged Out No longer eligible based on patient's age to complete this topic Goals Goal Patient Goal Type Associated Problems Recent Progress Patient-Stated? Author Blood Pressure < 140/90 Blood Pressure 136/82(2023 9:09 AM EST) No Davis Garber PharmD Hemoglobin A1c < 7 Result Component 5.6( 9:49 AM EDT) No Davis Garber PharmD Procedures Procedure Name Priority Date/Time Associated Diagnosis Comments POCT CREATININE GFR Routine 04/10/2024 1 0:[address] CHEST W CONTRAST Routine 04/10/2024 1 0:01 AM EST Mediastinal lymphadenopathy BITEWINGS - 3 RADIOGRAPHIC IMAGES Routine 03/16/2024 9:00 AM EST Advanced periodontitis Dental calculus PROPHYLAXIS - ADULT Routine 01/27/2024 9 :00 AM EDT Gingival bleeding Dental calculus Advanced periodontitis Missing teeth, acquired INTRAORAL - COMPLETE SERIES OF RADIOGRAPHIC IMAGES Routine 01/12/2024 10:00 AM EDT Advanced periodontitis Missing teeth, acquired Gingival bleeding Dental calculus PERIODIC ORAL EVALUATION - ESTABLISHED PATIENT Routine 01/12/2024 10:00 AM EDT ALBUMIN, RANDOM URINE W/CREATININE Routine 12/30/2023 9:50 AM EDT Type 2 diabetes mellitus with hyperlipidemia (CMS/HCC) (CMS/HCC) HEMOGLOBIN A1C Routine 12/30/2023 9:49 AM EDT Type 2 diabetes mellitus with hyperlipidemia (CMS/HCC) (CMS/HCC) LIPID PANEL, STANDARD Routine 12/30/2023 9:49 AM EDT Type 2 diabetes mellitus with hyperlipidemia (CMS/HCC) (CMS/HCC) HEPATITIS C AB W/REFL TO HCV RNA, QN, PCR Routine 03/08/2023 9:23 AM EST Annual physical exam HIV 1/2 ANTIGEN/ANTIBODY, FOURTH GENERATION W/RFL Routine 03/08/2023 9:23 AM EST Annual physical exam HM COLONOSCOPY Routine 10/31/2015 from Last 3 Months or Most Recently Relevant to Health Maintenance Results * POCT Creatinine GFR (04/10/2024 10:04 AM EST) POCT Creatinine 1.0 0.5 - 1.4 mg/dL [facility] GFR POC >60 [facility] Comment:Chronic Kidney Disea se: Estimated GFR < 60 mL/min/[id number] Kidney Disease: Estimated GFR < 15 mL/min/1.73m2 04/10/2024 10:0 4 AM EST 04/11/2024 7:57 AM EST Narrative [facility] - 04/11/2024 8:00 AM EST [id number].[facility] Ana María Monet MD LAB POINT OF CARE TEST DOCKED DEVICE ORDERABLES Final Result [facility] [address] [place] [phone] * CT Chest w/ Contrast (04/10/2024 10:01 AM EST) Anatomical Region Laterality Modality Body, Chest Computed Tomogra phy 04/10/2024 10:0 1 AM EST Narrative 05/16/2024 12:30 PM EST ? [facility] ?[address] ?[place] [address] ? CT Scan Report ? Signed ? Patient: Domingo,Kenneth ?MR#: [id number] ?? [id number] ? : 1960 ?Acct:[id number] ? Age/Sex: 64 / M ?ADM Date: 04/10/ ? Loc: HO.CT ? Attending Dr: Ana María Monet MD ? Ordering Physician: Ana María Greenwood MD ?? Date of Service: 04/10/24 ?? Procedure(s): CT chest w IV con ?? Accession Number(s): [id number] ? cc: Ana María Greenwood MD ? Report Number: ?? [id number]: Total DLP = ??150.00 mGy-cm ?? EXAMINATION: CT CHEST WITH IV CONTRAST ? INDICATION: pt w mediastinal lymphadenopathy to monitor ? COMPARISON: There are no prior studies available for comparison. ? TECHNIQUE: Helical CT scan of the chest was performed following ?? administration of intravenous contrast. ??Coronal and sagittal ?? reformatted images were generated and reviewed. ? This CT exam was performed with one or more of the following dose ?? reduction techniques: automated exposure control, adjustment of the mA ?? and/or kV according to patient size, use of iterative reconstruction ?? technique. ? DLP: 150 mGy-cm ? CHEST: ? THYROID: The thyroid is unremarkable. ? LUNGS: There is a 5 mm nodule in the right lower lobe (series 6, image ?? 87). There is subsegmental atelectasis in the right middle lobe and ?? lingula. Patchy groundglass opacities are noted in both lower lobes ?? likely related to the phase of respiration. ? MEDIASTINUM: There are enlarged superior mediastinal lymph nodes ?? measuring up to 1.9 cm. There are enlarged paratracheal lymph nodes ?? measuring up to 2.6 cm. There are AP window nodes measuring up to 1.4 ?? cm. There is a 2.2 cm subcarinal lymph node. ? MARIA VICTORIA: Enlarged bilateral hilar lymph nodes are identified measuring up ?? to 1.9 cm on the left and 2.2 cm on the right. ? CARDIOVASCULATURE: The heart is normal in size. ??There is no ?? pericardial effusion. ??The thoracic aorta is normal in caliber. ? DEGREE OF CORONARY CALCIFICATION: ??severe ? PLEURA: ??There is no pleural effusion. ??No pneumothorax. ? MAIN AIRWAYS: The mainstem bronchi and proximal branches are patent. ? AXILLA: There is no axillary lymphadenopathy. ? BONES AND SOFT TISSUES: Unremarkable ? UPPER ABDOMEN: The visualized portions of the liver, spleen, and ?? adrenals are unremarkable. ? CT/CT chest w IV con ?? IMPRESSION: ? 1. Mediastinal and bilateral hilar lymphadenopathy as described. ?? Comparison with outside prior examinations is recommended. ? 2. Severe coronary arterial calcification. ? 3. 5 mm right lower lobe nodule. Please see Fleischner Society ?? guidelines below. ? 4. Please note that while this study was performed on 04/10/2024, it is ?? only now submitted for interpretation, on 05/16/2024. ? Fleischner Criteria for pulmonary nodule follow-up ? SOLID NODULES: ?? Low risk patient: ?? <6mm: no follow-up ?? 6-8mm: 6 month follow-up CT ?? >8mm: PET/Biopsy/ 3 month follow-up CT ? High risk patient: ?? <6mm: 12 month follow-up CT ?? 6-8mm: 6 month follow-up CT ?? >8mm: PET/Biopsy/ 3 month follow-up CT ? SUB-SOLID/GROUNDGLASS NODULES: ?? All patients: ?? > or = 6mm: 6 month follow-up CT ? *Please note that in patients in the following categories, the ?? Fleischner criteria do not apply: Immunocompromised, lung cancer ?? screening population, age below 35, and patients with known malignancy ? Electronically signed by: ??Alejo Whelan MD ??05/16/2024 12:27 PM EST ?? RP ? Dictated By: ?Alejo Whelan MD ? Signed By: ?<Electronically signed by Alejo Whelan MD in OV> ?05/16/24 1227 ? DD/ 1001 ? TD/TT: 04/10/24 1025 ? Sales Vice President: ? Procedure Note [employer], Image - 05/16/[address] [address] [address] Scan Report Signed Patient: Junaid Domingo#: [id number] : 2Acct:[id number] Age/Sex: 64 / MADM Date: 04/10/24 Loc: HO.CT Attending Dr: Ana María Monet MD Ordering Physician: Ana María Greenwood MD Date of Service: 04/10/24 Procedure(s): CT chest w IV con Accession Number(s): [id number] cc: Ana María Greenwood MD Report Number: [id number]: Total DLP = 150.00 mGy-cm EXAMINATION: CT CHEST WITH IV CONTRAST INDICATION: pt w mediastinal lymphadenopathy to monitor COMPARISON: There are no prior studies available for comparison. TECHNIQUE: Helical CT scan of the chest was performed following administration of intravenous contrast. Coronal and sagittal reformatted images were generated and reviewed. This CT exam was performed with one or more of the following dose reduction techniques: automated exposure control, adjustment of the mA and/or kV according to patient size, use of iterative reconstruction technique. DLP: 150 mGy-cm CHEST: THYROID: The thyroid is unremarkable. LUNGS: There is a 5 mm nodule in the right lower lobe (series 6, image 87). There is subsegmental atelectasis in the right middle lobe and lingula. Patchy groundglass opacities are noted in both lower lobes likely related to the phase of respiration. MEDIASTINUM: There are enlarged superior mediastinal lymph nodes measuring up to 1.9 cm. There are enlarged paratracheal lymph nodes measuring up to 2.6 cm. There are AP window nodes measuring up to 1.4 cm. There is a 2.2 cm subcarinal lymph node. MARIA VICTORIA: Enlarged bilateral hilar lymph nodes are identified measuring up to 1.9 cm on the left and 2.2 cm on the right. CARDIOVASCULATURE: The heart is normal in size. There is no pericardial effusion. The thoracic aorta is normal in caliber. DEGREE OF CORONARY CALCIFICATION: severe PLEURA: There is no pleural effusion. No pneumothorax. MAIN AIRWAYS: The mainstem bronchi and proximal branches are patent. AXILLA: There is no axillary lymphadenopathy. BONES AND SOFT TISSUES: Unremarkable UPPER ABDOMEN: The visualized portions of the liver, spleen, and adrenals are unremarkable. CT/CT chest w IV con IMPRESSION: 1. Mediastinal and bilateral hilar lymphadenopathy as described. Comparison with outside prior examinations is recommended. 2. Severe coronary arterial calcification. 3. 5 mm right lower lobe nodule. Please see Fleischner Society guidelines below. 4. Please note that while this study was performed on 04/10/2024, it is only now submitted for interpretation, on 05/16/2024. Fleischner Criteria for pulmonary nodule follow-up SOLID NODULES: Low risk patient: <6mm: no follow-up 6-8mm: 6 month follow-up CT >8mm: PET/Biopsy/ 3 month follow-up CT High risk patient: <6mm: 12 month follow-up CT 6-8mm: 6 month follow-up CT >8mm: PET/Biopsy/ 3 month follow-up CT SUB-SOLID/GROUNDGLASS NODULES: All patients: > or = 6mm: 6 month follow-up CT *Please note that in patients in the following categories, the Fleischner criteria do not apply: Immunocompromised, lung cancer screening population, age below 35, and patients with known malignancy Electronically signed by: Alejo Whelan MD 05/16/2024 12:27 PM [facility] Dictated By: Alejo Whelan MD Signed By: <Electronically signed by Alejo Whelan MD in OV> 05/16/24 1227 DD/ 1001 TD/TT: 04/10/24 1025 Sales Vice President: us Ana María Monet MD IMG CT PROCEDURES Edited Result - Final * Albumin, Random Urine W/Creatinine (12/30/2023 9:50 AM EDT) Creatinine, Urine 125.49 mg/dL [facility] Microalbumin Urine 18.0 mg/L [facility] Microalbum Creatinine Ratio Ur 14.3 <30 ug/mg cr [facility] Comment:Albumin/Creatinine R atio Reference Ranges: Normal: < 30 ug/mg creatinine Microalbuminuria: 30 - 300 ug/mg creatinineClinical Albuminuria: > 300 ug/mg creatinine Urine (Urine, Random) 12/30/2023 9:50 AM EDT 12/30/2023 11:10 AM EDT us Ana María Monet MD LAB URINE ORDERAB LES Final Result [facility] [address] [place] [phone] * Hemoglobin A1c (12/30/2023 9:49 AM EDT) Hemoglobin A1c 5.6 <6.0 % [facility] Comment:Hemoglobin A1C Refer ence Range Adults: 4.8 - 6.0 % Non diabetic: < 6.0 % Goal: < 7.0 %Additional Action Suggested: > 8.0 %Note: Hemoglobin A1c results are invalid for patients with abnormal amounts of HbF. Blood transfusions may impact the HbA1c concentration in the patient sample. Estimated Average Glucose 114 mg/dL [facility] Comment:eAG = Estimated ave rage glucose which is %A1C expressed asaverage glucose, using the formula of the R9E-NicafssMnozjru Glucose study (ADAG), Diabetes Care, Vol.31,#8,Nov. 2007 Blood Venous blood specimen / Unknown 12/30/2023 9:49 AM EDT 12/30/2023 11:23 AM EDT us Ana María Monet MD LAB BLOOD ORDERAB LES Final Result [facility] [address] [place] [phone] * (ABNORMAL) Lipid Panel, Standard (12/30/2023 9:49 AM EDT) Triglycerides 100 <150 mg/dL [facility] Comment:Desirable Triglyceri de: less than 150 mg/dLBorderline High Triglyceride 150-199 mg/dLHigh Triglyceride: 200-499 mg/dLVery High Triglyceride: greater than or equal to 5OO mg/dL Cholesterol 98 <200 mg/dL [facility] Comment:Desirable Cholestero l: less than 200 mg/dLBorderline High Cholesterol: 200-239 mg/dLHigh Cholesterol: greater than 239 mg/dL LDL Cholesterol Calculated 43 <100 mg/dL [facility] Comment:Desirable LDL: less than 100 mg/dLNear Optimal/Above Optimal LDL: 110- 129 mg/dLBorderline High LDL: 130-159 mg/dLHigh LDL: 160-189 mg/dLVery High LDL: greater than or equal to 190 mg/dL HDL Cholesterol 35(L) >40 mg/dL [facility] Comment:Desirable HDL: great er than 40 mg/dL Note: This HDL assay may give artificially low results in patients with liver disease. Blood Venous blood specimen / Unknown 12/30/2023 9:49 AM EDT 12/30/2023 11:23 AM EDT us Ana María Monet MD LAB BLOOD ORDERAB LES Final Result Performing Organization Address [facility]/ZIP Co de Phone Number [facility] [address] [place] [phone] * Hepatitis C Antibody with Reflex to HCV, RNA, Quantitative, Real-Time PCR (03/08/2023 9:23 AM EST) Hepatitis C Antibody Nonreactive Nonreactive [facility] Comment:Antibodies to HCV no t detected; does not exclude early acuteHCV infection. Blood Venous blood specimen / Unknown 03/08/2023 9:23 AM EST 03/08/2023 11:03 AM EST us Ana María Monet MD LAB BLOOD ORDERAB LES Final Result Performing Organization Address [facility] Co de Phone Number [facility] [address] [place] [phone] * HIV-1/2 Antigen and Antibodies, Fourth Generation, with Reflexes (03/08/2023 9:23 AM EST) HIV AB/AG Nonreactive Nonreactive [facility] Comment:HIV-1 p24 Ag and/or HIV-1/HIV-2 Ab not detected.A test result that is nonreactive does not exclude thepossibility of exposure to or infection with HIV-1 and/orHIV-2. Nonreactive results in this assay for individualswith prior exposure to HIV-1 and/or HIV-2 may be due toantigen and antibody levels that are below the limit ofdetection of this assay.[employer] HIV Ag/Ab Combo assay result andsupplemental assay results should be interpreted inconjunction with the patient's clinical presentation,history and other laboratory results. If the results areinconsistent with clinical evidence, additional testing issuggested to confirm the result. Blood Venous blood specimen / Unknown 03/08/2023 9:23 AM EST 03/08/2023 11:03 AM EST us Ana María Monet MD LAB BLOOD ORDERAB LES Final Result [facility] [address] [place] [phone] * Colonoscopy (10/31/2015) Colonoscopy Normal Normal Narrative Tonia Bland - 10/31/2015 Repeat in one year due to poor preo Historical Provider HEALTH MAINTENANCE Final Result from Last 3 Months or Most Recently Relevant to Health Maintenance Insurance HSN PARTIAL [facility] C[place] ST[place] ADULT Care Teams Paradi Operator Relationship Specialty Start Date End Date Ana María Greenwood MD [address] [place] [id number] PCP - General Internal Medicine 11/05/22
--- OUTSIDE RECORDS SUMMARY | 2024-06-19 11:13 | XMS_ITS | Encounter Summary ---
Author Organization [facility] [facility] Address [address] 7[address] [place] [address] Care Team Providers Care Petroleum Engineering Professor Name Role Phone Ana María Greenwood MD Primary Care Pro vider Encounter Details Date Type Department Care Team (Late st Contact Info) Description 03/12/2023 Abstract [facility] MEDICINE [address] [place] [id number] Tonia Bland Social History Tobacco Use Types Packs/Day Years Used Date Smoking Tobacco: Never Smokeless Tobacco: Never Alcohol Use Standard Drinks/Week Comments Yes 0 (1 standard drink = 0.6 oz pur e alcohol) beergaldino socially Depression Answer Date Recorded Patient Health Questionnaire-9 Score 15 03/05/2023 Patient Health Questionnaire-9 Score 15 03/05/2023 Last PHQ-9: Questionnaire Data Not on file 1 05/05/2022 Depression Answer Date Recorded Patient Health Questionnaire-2 [...] Description 06/29/2024 1:00 PM EST Office Visit [facility] ADULT DENTAL [address] [place] [address] Carlos Temi [address] [place] [address] 08/03/2024 9:00 AM EDT Office Visit [facility] MEDICINE [address] [place] [address] Ana María Greenwood MD [address] [place] [address] documented as of this encounter Procedures Procedure Name Priority Date/Time Associated Diagnosis Comments HM COLONOSCOPY Routine 10/31/2015 documented in this encounter Results * Hm Colonoscopy (10/31/2015) Colonoscopy Normal Normal Narrative Tonia Bland - 10/31/2015 Repeat in one year due to poor preo us Historical Provider HEALTH MAINTENANCE Final Result documented in this encounter Visit Diagnoses Not on filedocumented in this encounter Additional Health Concerns Assessment Noted Time PHQ-9 Depression Total Score: 15 023 7:53 AM EST documented as of this encounter Care Teams Petroleum Engineering Professor Relationship Specialty Start Date End Date Ana María Greenwood MD [address] [place] [address] PCP - General Internal Medicine 11/05/22 documented as of this encounter
--- OUTSIDE RECORDS SUMMARY | 2024-06-19 11:13 | XMS_ITS | Encounter Summary ---
Author Organization [employer] [facility] Address [address] [facility] 7t [place] [address] Care Team Providers Care Mounter Brass [employer] Name Role Phone Ana María Greenwood MD Primary Care Pro vider Reason for Referral * Consultation (STAT) - Authorized Specialty Diagnoses / Procedures Referred By Alexx t Referred To Contact Diagnoses Abnormal CT of the chest Jovanna Gaona ANP [address] [place] [address] Phone: tel: fax: Luis Alberto Bocanegra MD [address] [place] [phone] Phone: tel: fax: Referral ID Status Reason Start Date Expiration Date Visits Requested Visits Authorized [id number] Authorized Specialty Services Required 06/13/2024 06/13/2025 12 12 Encounter Details Date Type Department Care Team (Late st Contact Info) Description 06/09/2024 Orders Only [facility] MED[facility]INE [address] [place] [address] Jovanna Gaona ANP [address] [place], [place] [phone] Abnormal CT of the chest (Primary Dx) Social History Tobacco Use Types Packs/Day Years [...] with others, in a hotel, in a long term, living outside on the street, on a [...] AM EDT documented as of this encounter Progress Notes * PILLO Rosario - 06/09/2024 4:35 PM EST Images from the original note were not included. Abnormal CT chest -CT chest 2020: bulky mediastinal lymphadenopathy ,largest lymph node in the right paratracheal region measuring 1.6 cm -CT chest w contrast 02/2023: Compared to previous exam in 2020 there is decrease in size of mediastinal lymph nodes ,for example a right paratracheal LN measures 1.4 from 2 cm before . Additional Lns seen precarinal are also enlarged but decrease in size. Tiny type I hiatal hernia . Moderate cardiomegaly with severe coronary artery atherosclerosis , mild enlarged spleen. -Had repeat chest CT with IV contrast 04/10/2024 that was not interpreted until 05/16/2024. It showed enlarged superior mediastinal lymph nodes measuring up to 1.9 cm. Enlarged paratracheal lymph nodemeasuring up to 2.6cm. AP window nodes measuring up to 1.4 cm. There is a 2.2 cm subcarinal lymph node. Enlarged bilateral hilar lymph nodes measuring up to 1.9 on the left and 2.2 cm on the right. Heart is normal in size severe degree of coronary calcification. Will ask team to notify patient that I am sending him a referral for thoracic surgery for eval given increase in size of paratracheal lymph node. Will request team to send results with referral. Patient Active Problem List Diagnosis Essential hypertension Type 2 diabetes mellitus with hyperlipidemia (CMS/HCC) ([facility]) History of non-ST elevation myocardial infarction (NSTEMI) Insomnia Housing insecurity Overweight (BMI 25.0-29.9) Lymphadenopathy, thoracic Polyarthralgia Depression Cardiomyopathy (CMS/[facility]) History of cocaine use Health care maintenance Nocturia Gingival bleeding Dental calculus Advanced periodontitis Missing teeth, acquired documented in this encounter Plan of Treatment Upcoming Encounters Date Type Department Care Team (Late st Contact Info) Description 06/29/2024 1:00 PM EST Office Visit [facility] ADULT DENTAL [address] [place] [address] CarlosFlorinTemi [address] [place] [address] 08/03/2024 9:00 AM EDT Office Visit [facility] MEDICINE [address] [place] [address] Ana María Greenwood MD [address] [place], [place] [phone] Scheduled Referrals Name Type Priority Associated Diagnoses Order Schedule Referral to Cardiothoracic Surgery Outpatient Referral STAT Abnormal CT of the chest Expected: 06/09/2024 (Approximate), Expires: 06/09/2025 documented as of this encounter Goals Goal Patient Goal Type Associated Problems Recent Progress Patient-Stated? Author Blood Pressure < 140/90 Blood Pressure 136/82(2023 9:09 AM EST) No Davis Garber PharmD Hemoglobin A1c < 7 Result Component 5.6( 9:49 AM EDT) No Davis Garber PharmD documented as of this encounter Visit Diagnoses Diagnosis Abnormal CT of the chest- Primary Nonspecific (abnormal) findings on radiological and other examination of other intrathoracic organs documented in this encounter Additional Health Concerns Assessment Noted Time PHQ-9 Depression Total Score: 13 024 4:50 PM EDT documented as of this encounter Care Teams Mounter Brass Wind Instruments Relationship Specialty Start Date End Date Ana María Greenwood MD [address] [place] [phone] PCP - General Internal Medicine 11/05/22 documented as of this encounter
--- OUTSIDE RECORDS SUMMARY | 2024-06-19 11:13 | XMS_ITS | Clinical Summary ---
Author Organization [facility] Address [address] [place] [address] Phone Care Team Providers Care Filling Operator Name Role Phone Ana María Greenwood MD Primary Care Pro vider Allergies No known active allergies Medications aspirin 81 mg chewable tablet Take 1 Tablet by mouth daily. Active atorvastatin (LIPITOR) 80 mg tablet Take 1 Tablet by mouth daily. Active carvediloL (COREG) 3.125 mg tablet Take 1 Tablet by mouth 2 times daily (with meals). Active cetirizine (ZyrTEC) 10 mg capsule Take 10 mg by mouth daily. Active empagliflozin (JARDIANCE) 10 mg tablet Take 10 mg by mouth every morning. Active gabapentin (NEURONTIN) 300 mg capsule Take 1 Capsule by mouth 2 times daily. Active lisinopriL (PRINIVIL,ZESTR IL) 10 mg tablet Take 1 Tablet by mouth daily. Active metFORMIN XR (GLUCOPHAGE-XR) 500 mg 24 hr tablet Take 1 Tablet by mouth at bedtime. Active tamsulosin (FLOMAX) 0.4 mg 24 hr capsule Take 1 Capsule by mouth daily. Take 30 mins after same meal every day. Active ivermectin (STROMECTOL) 3 mg tablet Take 1 tablet (3 mg total) by mouth 1 (one) time per week. 2 each 03/24/2024 Active Active Problems Problem Noted Date Diagnosed Date Cardiomyopathy 01/27/2024 Depression 01/27/2024 Essential hypertension 01/27/2024 History of cocaine use 01/27/2024 Insomnia 01/27/2024 Nocturia 01/27/2024 NSTEMI (non-ST elevated myocardial infarction) 1 Overweight (BMI 25.0-29.9) 01/27/2024 Polyarthralgia 01/27/2024 T2DM (type 2 diabetes mellitus) 01/27/2024 Thoracic lymphadenopathy 01/27/2024 Encounters Date Type Department Care Team Description 03/24/2024 11:42 AM EST - 03/24/2024 5:06 PM EST Emergency [facility] Emergency [address] [place] [address] Scabies (Primary Dx) Discharge Disposition: Home or Self Care from Last 3 Months Immunizations Name Administration Dates Next Due Moderna SARS-CoV-2 COVID-19, mRNA, LNP-S, preservative free 06/02/2022 Medical History Medical History Date Comments Hypertension Diabetes (CMS/HCC) Hyperlipidemia BPH (benign prostatic hyperplasia) Social History Tobacco Use Types Packs/Day Years Used Date Smoking Tobacco: Never Smokeless Tobacco: Never Tobacco Cessation:Counseling Given: Not Answered Alcohol Use Standard Drinks/Week Comments Yes 6 (1 standard drink = 0.6 oz pur e alcohol) Sex and Gender Information Value Date Recorded Sex Assigned at Male 03/24/2024 1:46 PM EST Legal Sex Male 4:33 AM EST Gender Identity Male 03/24/2024 1:46 PM EST Sexual Orientation Not on file Obstetrics History Last Filed Vital Signs Vital Sign Reading Time Taken Comments Blood Pressure 124/83 03/24/2024 11:00 AM EST Pulse 52 03/24/2024 11:00 AM EST Temperature 36.6 ??C (97.9 ??F) 03/24/2024 11:[address] Respiratory Rate 20 03/24/2024 11:00 AM EST Oxygen Saturation 97% 03/24/2024 11:00 AM EST Inhaled Oxygen Concentration - - Weight 83.9 kg (185 lb) 03/24/2024 11:00 AM EST Height 172.7 cm (5' 8 ) 03/24/2024 11:00 AM EST Body Mass Index 28.13 03/24/2024 11:00 AM EST Plan of Treatment Health Maintenance Due Date Last Done Comments Diabetes: Annual Foot Exam 1972 Diabetes: Annual Retina Eye Exam 1972 Colorectal Cancer Screening: Colonoscopy 12/20/2023 Social Influencers of Health Screening 12/20/2023 Diabetes: Annual Urine Albumin-Creatinine Ratio (uACR) 01/27/2024 Diabetes: Blood Sugar Control Test (HGBA1C) 06/28/2024 12/30/2023 Depression Screening 12/05/2024 12/06/2023 Diabetes: Annual GFR (Glomerular Filtration Rate) 01/13/2025 01/14/2024, 12/30/2023 Hypertension/CHF/CAD Annual BMP Blood Test 01/13/2025 01/14/2024, 12/30/2023 Cholesterol Screening (Lipid Panel) 12/29/2028 12/30/2023 DTaP,Tdap,and Td Vaccines (2 - Td or Tdap) 10/30/2031 10/29/2021 Pneumococcal Vaccine: 50+ Years Completed 03/03/2023 Pneumococcal Vaccine: Pediatrics (0 to 5 Years) and At-Risk Patients (6 to 64 Years) Completed 03/03/2023 HIV Screening Completed 03/08/2023 Hepatitis C Screening Completed 03/08/2023 RSV Immunization Patients 60+ Years Old Completed 03/30/2023 Zoster Vaccines Completed 06/23/2023, 04/22/2023 Hepatitis B Vaccines Completed 07/28/2023, 06/23/19 COVID-19 Vaccine Completed 02/10/2024, , 06/02/2022, Additional history exists Influenza Vaccine Completed 02/10/2024, , 06/02/2022, Additional history exists HIB Vaccines Aged Out No longer eligi ble based on patient's age to complete this topic HPV Vaccines Aged Out No longer eligi ble based on patient's age to complete this topic Hepatitis A Vaccines Aged Out No long er eligible based on patient's age to complete this topic IPV Vaccines Aged Out No longer eligi ble based on patient's age to complete this topic MMR Vaccines Aged Out No longer eligi ble based on patient's age to complete this topic Meningococcal ACWY Vaccine Aged Out N o longer eligible based on patient's age to complete this topic Meningococcal B Vacine Aged Out No lo nger eligible based on patient's age to complete this topic RSV Immunization Patients Under 20 months Aged Out No longer eligible based on patient's age to complete this topic Varicella Vaccines Aged Out No longer eligible based on patient's age to complete this topic Insurance MEDICAID - [place] Care Teams Filling Operator Relationship Specialty Start Date End Date Ana María Greenwood MD [address] [facility] [address] [place] [address] PCP - General 09/16/23
== END 2024-06-19 10:59 | disposition home or self-care (01) ==
PROVIDERS: PCP Student in an Organized Health Care Education/Training Program; Visit Provider Surgery
DX: R59.0 Localized enlarged lymph nodes (principal)
CPT/HCPCS: 99205

== ENCOUNTER → 2024-06-19 10:05 | Outpatient (BNVA) | payer MEDICAID, SELFPAY | PROVIDERS: PCP Student in an Organized Health Care Education/Training Program; Visit Provider Surgery | DX: R59.0 Localized enlarged lymph nodes (principal) | CPT/HCPCS: 99202 ==

== ENCOUNTER 2025-04-02 08:25 | Outpatient (REF) | payer MEDICAID, SELFPAY ==
--- NOTE | ~2025-04-02 | XR_ITS ---
EXAMINATION: XR KNEE AP STANDING CLINICAL INFORMATION: M25.561 - Pain in right knee COMPARISON: X-ray 01/14/2024 TECHNIQUE: AP bilateral standing view of the knees was obtained. FINDINGS: Mild medial compartment arthritis in bilateral knees. No acute fracture. No suspicious bony lesions.. XR/XR knee standing BI IMPRESSION: Mild bilateral medial compartment arthritis. Electronically signed by: Milo Richardson MD 04/03/2025 12:48 PM [facility]
== END 2025-04-02 08:26 | disposition home or self-care (01) ==
LOC: HO.HOSX 08:25
DX: M17.0 Bilateral primary osteoarthritis of knee (principal)
CPT/HCPCS: 73565

== ENCOUNTER 2025-04-02 13:06 | Outpatient (AMB) | payer MEDICAID, SELFPAY ==
--- NOTE | 2025-04-02 13:25 | A.OFFVIS_ITS ---
Vital Signs 04/02/25 13:26 Height 5 ft 8 in Weight 186 lb BMI 28.3 Intake Visit Reasons: OV- Bilateral knee pain Intake Note: Kenneth is a 65 year old male who presents today for Follow Up of his Bilateral Knee Osteoarthritis. He was last seen on 01/14/24 where he was given a Left Knee Cortisone Injection. Patient reports the injection helped a little bit, however it is still causing discomfort. He complains of locking, clicking, and popping. Patient is not interested in any future injections. Picker Machine Operator Required: Yes Picker Machine Operator Language: Amusement Machine Mechanic Name: [id number] Allergies No Known Allergies Allergy (Verified 04/02/25 13:34) HPI HPI OV- Bilateral knee pain: Details: Kenneth is a 65 year old male who presents today for Follow Up of his Bilateral Knee Osteoarthritis. He was last seen on 01/14/24 where he was given a Left Knee Cortisone Injection. Patient reports the injection helped a little bit, however it is still causing discomfort. He complains of locking, clicking, and popping. Patient is not interested in any future injections, due to syncopal episode after last injection. Patient states he is not interested in surgical intervention at this time. No other acute complaints or concerns at this time. 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 Patient is able to extend the left knee to 0 degrees and flex to approximately 120 degrees but reports discomfort with the extremes of range of motion No ligamentous laxity noted Distal sensation intact Capillary refill brisk Negative So's bilaterally Assessment & Plan Assessment & Plan (1) Osteoarthritis of knees, bilateral: Code(s): M17.0 - Bilateral primary osteoarthritis of knee Category: Medical Plan 1. Osteoarthritis of bilateral knees Patient is educated about this condition Patient is educated about the typical recovery course Patient is referred to PT for range of motion, strengthening, gait training, stabilization of bilateral knees, as he is uninterested in further injections or surgical intervention Patient is educated he should call PT later this week Patient understands this and is amenable to this plan Follow-up as needed with any acute concerns, especially if PT does not help with arthritis pain Orders: Orders XR knee standing BI Today M25.561 - Pain in right knee, M25.562 - Pain in left knee PT Evaluation and Treatment Today M17.0 - Bilateral primary osteoarthritis of k nee Coding Level of Care Code Est Pt Level 3 (23000) Diagnoses Osteoarthritis of knees, bilateral M17.0
[2025-04-02 13:26] VITALS: BMI 28.3
--- OUTSIDE RECORDS SUMMARY | 2025-04-02 21:51 | XMS_ITS | Encounter Summary ---
Author Organization [employer] Address [address] [place] [address] [address] [place] [address] Care Team Providers Care Administrative Assistant Data Entry Name Role Phone Ana María Greenwood MD Primary Care Pro vider Deric Walker DPYana Unavailable [phone] Laurel Amanda Unavailable Luis Alberto Bocanegra MD Unavailable [phone] Reason for Visit * Reason Comments Med Refill Encounter Details Date Type Department Care Team (Late st Contact Info) Description 07/24/2023 Refill [facility] MEDICINE [address] [place], [place] [phone] Ana María Greenwood MD [address] [place], [place] [phone] Social History Tobacco Use Types Packs/Day Years [...] your housing situation today? I have remy zane 04/22/[address] you li [...] Care Team (Late st Contact Info) Description 05/30/2025 2:30 PM EST Office Visit [facility] OPTOMETRY [address] [place] [address] Luciano, Shanti, OD [address] [place] [address] 06/27/2025 8:45 AM EST Office Visit [facility] ADULT DENTAL [address] [place] [address] Carlos, Temi [address] [place] [address] documented as of this encounter Goals Goal Patient Goal Type Associated Problems Recent Progress Patient-Stated? Author Blood Pressure < 140/90 Blood Pressure 120/70(2024 10:31 AM EDT) No Davis Garber PharmD Hemoglobin A1c < 7 Result Component 6.7( 10:35 AM EDT) No Davis Garber PharmD documented as of this encounter Visit Diagnoses Not on filedocumented in this encounter Additional Health Concerns Assessment Noted Time PHQ-9 Depression Total Score: 15 023 7:53 AM EST documented as of this encounter Care Teams Administrative Assistant Data Entry Relationship Specialty Start Date End Date Ana María Greenwood MD [address] [place] [address] PCP - General Internal Medicine 11/05/22 Deric Walker DPM [address] [facility] [address] [place] [address] Podiatry 12/01/24 Laurel Amanda [address] [place] [address] [address] [place] [address] Orthopaedic Surgery 12/01/24 Luis Alberto Bocanegra MD [address] [place] [address] Dr 3[address] [place] [address] General Surgery 12/01/24 [facility] [address] [facility] 2nd [address] [place] [address] Cardiology 01/28/23 Gastroentrology ([facility]) [address] [place] [address] Gastroenterology 01/28/23 Eye & Lasik [address] [facility] 1st [place] [address] Ophthalmology 03/03/23 [facility] [address] [place] [address] Physical Therapy 07/22/23 documented as of this encounter
--- OUTSIDE RECORDS SUMMARY | 2025-04-02 21:51 | XMS_ITS | Encounter Summary ---
Author Organization [employer] Address [address] [place] [address] 7 [place] [address] Care Team Providers Care Video Game Programmer Name Role Phone Ana María Greenwood MD Primary Care Pro vider Deric Walker DPM Unavailable [phone] Laurel Amanda Unavailable Luis Alberto Bocanegra MD Unavailable [phone] Reason for Visit * Reason Comments Care Coordination Appointment reminder Encounter Details Date Type Department Care Team (Latest Contact Info) Description 04/02/2025 Patient Outreach [facility] [address] [place], [place] [phone] Ana María Greenwood MD [address] [place], [place] [phone] Care Coordination (Appointment reminder) Social History Tobacco Use Types Packs/Day Years Used Date Smoking Tobacco: Never Smokeless Tobacco: Never Alcohol Use Standard Drinks/Week Comments Yes 0 (1 standard drink = 0.6 oz pur e alcohol) beers socially Depression Answer Date Recorded Patient Health Questionnaire-9 Score 18 03/12/2025 Patient Health Questionnaire-9 Score 18 03/12/2025 Last PHQ-9: Questionnaire Data Not on file 1 05/12/2024 Housing Stability Answer Date Recorded What is your housing situation today? I have housing today, but I am worried about losing housing in the future 02/08/[address] you li ve. Do you have problems with any of the following? None of the above 02/08/2025 Food Insecurity Answer Date Recorded Within the past 12 months, y ou worried that your food would run out before you got money to buy more: Often true 02/08/2025 Within the past 12 months,th e food you bought just didn't last and you didn't have enough money to get more: Often true Transportation Answer Date Recorded In the past [...] Answer Date Recorded Patient Health Questionnaire-2 Score 5 03/12/2025 Internet Access Answer Date Recorded Internet Access Q1 Yes 01/14/2024 Internet Access Q2 Not on file 01/14/2024 Sex and Gender Information Value Date Recorded Sex Assigned at Male 02/23/2022 10:20 AM EDT Legal Sex Male 10:20 AM EDT Gender Identity Male 02/23/2022 10:20 AM EDT Sexual Orientation Straight 02/23/2022 10 :20 AM EDT documented as of this encounter Progress Notes * Dimple Ponce - 04/02/2025 9:36 AM EST CHW placed call to patient to remind of appointment for today 04/02/25 130pm at [facility] ortho, patient stated he has no barriers in attending appointment, if he has any issues he will call me. documented in this encounter Plan of Treatment Upcoming Encounters Date Type Department Care Team (Late st Contact Info) Description 05/30/2025 2:30 PM EST Office Visit [facility] [address] [place], [place] [phone] Luciano, Shanti, OD [address] [place] [address] 06/27/2025 8:45 AM EST Office Visit [facility] [address] [place] [address] Carlos, Temi [address] [place] [address] documented as of this encounter Goals Goal Patient Goal Type Associated Problems Recent Progress Patient-Stated? Author Blood Pressure < 140/90 Blood Pressure 120/70(2024 10:31 AM EDT) No Davis Garber PharmD Hemoglobin A1c < 7 Result Component 6.7( 10:35 AM EDT) No Davis Garber, Claire Help patients manage their type 2 diabetes Care Plan Help patients manage their type 2 diabetes No Dimple Ponce Weekly blood pressure task Care Plan Weekly blood pressure task No Dimple Ponce Help patients manage their type 2 diabetes Care Plan Help patients manage their type 2 diabetes No Dimple Ponce Patient has chronic kidney disease Care Plan Patient has chronic kidney disease No Dimple Ponce Weekly blood pressure task Care Plan Weekly blood pressure task No Dimple Ponce Patient has chronic kidney disease Care Plan Patient has chronic kidney disease No Dimple Ponce Weekly blood pressure task Care Plan Weekly blood pressure task No Shaina Butler GREENSMAN Weekly blood pressure task Care Plan Weekly blood pressure task No Evelin Butlerfer GREENSMAN Patient has chronic kidney disease Care Plan Patient has chronic kidney disease No Rosmery Butlernifer GREENSMAN Patient has chronic kidney disease Care Plan Patient has chronic kidney disease No Luke Shaina, GREENSMAN Weekly blood pressure task Care Plan Weekly blood pressure task No Dimple Ponce Weekly blood pressure task Care Plan Weekly blood pressure task No Dimple Ponce Patient has chronic kidney disease Care Plan Patient has chronic kidney disease No Dimple Ponce Patient has chronic kidney disease Care Plan Patient has chronic kidney disease No Dimple Ponce Weekly blood pressure task Care Plan Weekly blood pressure task No Savanah Stuart Weekly blood pressure task Care Plan Weekly blood pressure task No Savanah Stuart Patient has chronic kidney disease Care Plan Patient has chronic kidney disease No Annabelle Stuartryleindu Patient has chronic kidney disease Care Plan Patient has chronic kidney disease No Savanah Stuart Weekly blood pressure task Care Plan Weekly blood pressure task No Kayla Ramos MA Weekly blood pressure task Care Plan Weekly blood pressure task No Kayla Ramos MA Patient has chronic kidney disease Care Plan Patient has chronic kidney disease No Kayla Ramos [place] Patient has chronic kidney disease Care Plan Patient has chronic kidney disease No Kayla Ramos MA Weekly blood pressure task Care Plan Weekly blood pressure task No Alex Gregorio RN Weekly blood pressure task Care Plan Weekly blood pressure task No Alex Gregorio RN Patient has chronic kidney disease Care Plan Patient has chronic kidney disease No Alex Gregorio RN Patient has chronic kidney disease Care Plan Patient has chronic kidney disease No Alex Gregorio RN Weekly blood pressure task Care Plan Weekly blood pressure task No Alex Gregorio RN Weekly blood pressure task Care Plan Weekly blood pressure task No Alex Gregorio RN Patient has chronic kidney disease Care Plan Patient has chronic kidney disease No Alex Gregorio RN Patient has chronic kidney disease Care Plan Patient has chronic kidney disease No Alex Gregorio RN Weekly blood pressure task Care Plan Weekly blood pressure task No Dimple Ponce Weekly blood pressure task Care Plan Weekly blood pressure task No Dimple Ponce Patient has chronic kidney disease Care Plan Patient has chronic kidney disease No Dimple Ponce Patient has chronic kidney disease Care Plan Patient has chronic kidney disease No Dimple Ponce Weekly blood pressure task Care Plan Weekly blood pressure task No Dimple Ponce Weekly blood pressure task Care Plan Weekly blood pressure task No Dimple Ponce Patient has chronic kidney disease Care Plan Patient has chronic kidney disease No Dimple Ponce Patient has chronic kidney disease Care Plan Patient has chronic kidney disease No Dimple Ponce documented as of this encounter Visit Diagnoses Not on filedocumented in this encounter Additional Health Concerns Active Problems Noted Date Diagnosed Date Help patients manage their type 2 diabetes 03/08 Weekly blood pressure task 03/08/2025 Help patients manage their type 2 diabetes 03/08 Patient has chronic kidney disease 03/08/2025 Weekly blood pressure task 03/08/2025 Patient has chronic kidney disease 03/08/2025 Weekly blood pressure task 03/08/2025 Weekly blood pressure task 03/08/2025 Patient has chronic kidney disease 03/08/2025 Patient has chronic kidney disease 03/08/2025 Weekly blood pressure task 03/12/2025 Weekly blood pressure task 03/12/2025 Patient has chronic kidney disease 03/12/2025 Patient has chronic kidney disease 03/12/2025 Weekly blood pressure task 03/12/2025 Weekly blood pressure task 03/12/2025 Patient has chronic kidney disease 03/12/2025 Patient has chronic kidney disease 03/12/2025 Weekly blood pressure task 03/14/2025 Weekly blood pressure task 03/14/2025 Patient has chronic kidney disease 03/14/2025 Patient has chronic kidney disease 03/14/2025 Weekly blood pressure task 03/16/2025 Weekly blood pressure task 03/16/2025 Patient has chronic kidney disease 03/16/2025 Patient has chronic kidney disease 03/16/2025 Weekly blood pressure task 03/19/2025 Weekly blood pressure task 03/19/2025 Patient has chronic kidney disease 03/19/2025 Patient has chronic kidney disease 03/19/2025 Weekly blood pressure task 03/19/2025 Weekly blood pressure task 03/19/2025 Patient has chronic kidney disease 03/19/2025 Patient has chronic kidney disease 03/19/2025 Weekly blood pressure task 04/02/2025 Weekly blood pressure task 04/02/2025 Patient has chronic kidney disease 04/02/2025 Patient has chronic kidney disease 04/02/2025 Assessment Noted Time PHQ-9 Depression Total Score: 18 025 1:10 PM EST documented as of this encounter Care Teams Video Game Programmer Relationship Specialty Start Date End Date Ana María Greenwood MD [address] [place] [address] PCP - General Internal Medicine 11/05/22 Deric Walker DPM [address] [place] [address] [address] [place] [address] Podiatry 12/01/24 Laurel Amanda [address] [place] [address] Orthopaedic Surgery 12/01/24 Luis Alberto Bocanegra MD [address] 3rd [place] [address] General Surgery 12/01/24 [facility] [address] [place] [address] Cardiology 01/28/23 Gastroentrology ([facility]) [address] 3rd [address] [place] [address] Gastroenterology 01/28/23 Eye & Las[facility] [address] [place] [address] Ophthalmology 03/03/[address] [place] [id number] Physical Therapy 07/22/23 documented as of this encounter
--- OUTSIDE RECORDS SUMMARY | 2025-04-02 21:51 | XMS_ITS | Encounter Summary ---
Author Organization [employer] Address [address] [place] [address] [address] [place] [address] Care Team Providers Care Wastewater Engineer Name Role Phone Ana María Greenwood MD Primary Care Pro vider Deric Walker DPYana Unavailable [phone] Laurel Amanda Unavailable Luis Alberto Bocanegra MD Unavailable [phone] Reason for Visit * Reason Comments Med Refill Encounter Details Date Type Department Care Team (Late st Contact Info) Description 03/30/2025 Refill [facility] [address] [place], [place] [phone] Ana María Greenwood MD [address] [place], [place] [phone] Chronic pain of both shoulders Social History Tobacco Use Types Packs/Day Years [...] the past 12 months, has t he [employer], gas, oil or water company threatened to [...] 2:30 PM EST Office Visit [facility] [address] [place] [address] Luciano, Hsanti, OD [address] [place] [address] 06/27/2025 8:45 AM EST Office Visit [facility] [address] [place] [address] Carlos, Temi [address] [place] [address] documented as of this encounter Goals Goal Patient Goal Type Associated Problems Recent Progress Patient-Stated? Author Blood Pressure < 140/90 Blood Pressure 120/70(2024 10:31 AM EDT) No Davis Garber, PharmShimon Hemoglobin A1c < 7 Result Component 6.7( [...] Care Plan Weekly blood pressure task No LukeRosmery thorntonnifer MILITARY ADMINISTRATIVE TECHNICIAN Weekly blood pressure task Care Plan Weekly blood pressure task No Luke, Shaina, MILITARY ADMINISTRATIVE TECHNICIAN Patient has chronic kidney disease Care Plan Patient has chronic kidney disease No Luke, Shaina, MILITARY ADMINISTRATIVE TECHNICIAN Patient has chronic kidney disease Care Plan Patient has chronic kidney disease No LukeShaina thornton LPN Weekly blood pressure task Care Plan Weekly [...] Care Plan Weekly blood pressure task No Annabelle Stuartryleindu Patient has chronic kidney disease Care Plan Patient has chronic kidney disease No Savanah Stuart Patient has chronic kidney disease Care Plan Patient has chronic kidney disease No Leanna Stuartleindu Weekly blood pressure task Care Plan Weekly [...] as of this encounter Visit Diagnoses Diagnosis Chronic pain of both shoulders documented in this encounter Additional Health Concerns Active [...] 03/19/2025 Patient has chronic kidney disease 03/19/2025 Assessment Noted Time PHQ-9 Depression Total Score: 18 025 1:10 PM EST documented as of this encounter Care Teams Wastewater Engineer Relationship Specialty Start Date End Date Ana María Greenwood MD [address] [place] [address] PCP - General Internal Medicine 11/05/22 Deric Walker DPM [address] [facility] [address] [place] [address] Podiatry 12/01/24 Laurel Amanda [address] [place] [address] Orthopaedic Surgery 12/01/24 Luis Alberto Bocanegra MD [address] [place] [address] Dr 3[address] [place] [address] General Surgery 12/01/24 [facility] [address] [facility] 2[address] [place] [address] Cardiology 01/28/23 Gastroentrology ([facility]) [address] [facility] 3rd [address] [place] [address] Gastroenterology 01/28/23 Eye & Las[facility] [address] [facility] 1st [place] [address] Ophthalmology 03/03/23 [facility] [address] [place] [address] Physical Therapy 07/22/23 documented as of this encounter
--- OUTSIDE RECORDS SUMMARY | 2025-04-02 21:52 | XMS_ITS | Clinical Summary ---
Author Organization [employer] Address [address] [facility] [address] [place] [address] Care Team Providers Care Boiling House Hand Name Role Phone Ana María Greenwood MD Primary Care Pro vider Deric Walker DPM Unavailable [phone] Laurel Amanda Unavailable Luis Alberto Bocanegra MD Unavailable Allergies No known active allergies Medications * This document contains information received from the source organization and may not represent a complete record from that organization. Blood Glucose Monitoring Suppl (FreeStyle glucose monitoring) kit 1 each. Test 1 time by intradermal route 3 times daily. Active Blood Pressure kitIndications:Es sential hypertension 1 kit in the morning. 1 kit 023 Active Blood Glucose Monitoring Suppl (FreeStyle [place] Lite) w/Device kit Use to test blood sugar bid dx dm 1 kit 024 Active hydrocortisone (Anusol-HC) 2.5 % rectal cream Insert into the rectum 2 times daily. 28 g 024 Active carvedilol (Coreg) 3.125 MG tabletIndications :History of non-ST elevation myocardial infarction (NSTEMI) TAKE 1 TABLET BY MOUTH TWICE DAILY IN THE MORNING AND IN THE EVENING 180 tablet 1 025 Active TRUEplus Lancets 33G miscIndications:T ype 2 diabetes mellitus with hyperlipidemia (HCC) TEST BLOOD SUGAR TWICE DAILY 100 each 11 025 Active psyllium (Metamucil Smooth Texture) 58.6 % powder Take 5.12 g (3 g of fiber) by mouth 2 times daily. 283 g 2 025 2025 Active hydrocortisone 2.5 % cream Apply pea sized amount to skin bid for 1 week 15 g 025 Active cetirizine (ZyrTEC) 10 MG tablet TAKE 1 TABLET BY MOUTH EVERY DAY 90 tablet 1 03/16/20 25 2:17 PM EST 025 Active docusate sodium (Colace) 100 MG capsule TAKE 1 CAPSULE BY MOUTH TWICE DAILY NEEDED FOR CONSTIPATION 180 capsule 1 025 Active gabapentin (Neurontin) 300 MG capsuleIndication s:Chronic pain of both shoulders Take 1 capsule (300 mg) by mouth at bedtime. 30 capsule 2 03/16/20 2:17 PM EST 025 Active tamsulosin (Flomax) 0.4 MG 24 hr capsule Take 1 capsule (0.4 mg) by mouth at bedtime. 90 capsule 025 Active Jardiance 10 MGIndications:Typ e 2 diabetes mellitus with hyperlipidemia (HCC) TAKE 1 TABLET BY MOUTH EVERY MORNING 30 tablet 3 025 Active DULoxetine (Cymbalta) [address] capsuleIndication s:Depression, unspecified depression type TAKE 1 CAPSULE BY MOUTH TWICE DAILY IN THE MORNING AND IN THE EVENING 60 capsule 2 03/16/20 2:17 PM EST 025 Active Alcohol Swabs (Alcohol Prep) 70 % padsIndications:T ype 2 diabetes mellitus with hyperlipidemia (HCC) USE WHEN TEST BLOOD SUGAR 100 each 03/16/20 2:17 PM EST 025 Active atorvastatin (Lipitor) 80 MG tabletIndications :History of non-ST elevation myocardial infarction (NSTEMI) TAKE 1 TABLET BY MOUTH EVERY MORNING 90 tablet 025 Active lisinopril 10 MG tabletIndications :Essential hypertension TAKE 1 TABLET BY MOUTH EVERY MORNING 90 tablet 025 Active metFORMIN XR (Glucophage-XR) 500 MG 24 hr tablet TAKE 1 TABLET BY MOUTH EVERY EVENING WITH FOOD 90 tablet 025 Active Aspirin Low Dose 81 MG chewable tabletIndications :Old myocardial infarction TAKE 1 TABLET BY MOUTH EVERY MORNING (CHEW) 90 tablet 025 Active glucose blood (FREESTYLE LITE) test stripIndications: Type 2 diabetes mellitus with hyperlipidemia (HCC) USE TO TEST BLOOD SUGAR TWICE A DAY 100 each 11 03/16/20 25 2:17 PM EST 025 Active FreeStyle lancetsIndication s:Type 2 diabetes mellitus with hyperlipidemia (HCC) 1 each by Other route 2 times daily. USE TO TEST BLOOD SUGAR TWICE A DAY 100 each 11 03/16/20 25 2:17 PM EST 025 2025 Active glucose blood (FREESTYLE LITE) test stripIndications: Type 2 diabetes mellitus with hyperlipidemia (HCC) Use as directed twice daily 100 each 11 023 2024 Discontinued(R eorder (will not trigger notification to Pharmacy)) Alcohol Swabs (Alcohol Prep) 70 % padsIndications:T ype 2 diabetes mellitus with hyperlipidemia (HCC) USE WHEN TEST BLOOD SUGAR 100 each 11 024 2024 Discontinued metFORMIN XR (Glucophage-XR) 500 MG 24 hr tablet TAKE 1 TABLET BY MOUTH EVERY EVENING WITH FOOD 90 tablet 025 2024 Discontinued lisinopril 10 MG tabletIndications :Essential hypertension TAKE 1 TABLET BY MOUTH EVERY MORNING 90 tablet 025 2024 Discontinued atorvastatin (Lipitor) 80 MG tabletIndications :History of non-ST elevation myocardial infarction (NSTEMI) TAKE 1 TABLET BY MOUTH EVERY MORNING 90 tablet 025 2024 Discontinued aspirin (Aspirin Low Dose) 81 MG chewable tabletIndications :Old myocardial infarction Chew 1 tablet (81 mg) in the morning. 90 tablet 025 2024 Discontinued Active Problems Problem Noted Date Diagnosed Date Sarcoid 02/08/2025 Overview (02/08/2025): -Seen 09/2024 by surgeon for Enlarged mediastinal and hilar lymphadenopathy underwent BAL and mediastinoscopy with biopsies on 11/03/24 -Biopsies of right paratracheal and subcarinal lymph node showed abundant nonnecrotizing granulomas. Tissue culture was negative for fungus and all other potential pathogens. Microbiology on bronchoscopy was also negative . Px was dxed w Sarcoidosis. Generalized gingival recession, severe ARMAND (generalized anxiety disorder) 08/07/2024 Constipation 08/04/2024 Moderate episode of recurren t major depressive disorder (CMS/HCC) 08/03/2024 Impacted cerumen of right ear 06/28/2024 Assessment & Plan (06/28/2024 11:28 AM EST): I instructed patient to use Debrox drops on his right ear for 4 to 5 days and then come back for nurse visit for ear lavage Advised patient not to use Q-tips Gingival bleeding 01/27/2024 Dental calculus 01/27/2024 Advanced periodontitis 01/27/2024 Missing teeth, acquired 01/27/2024 Nocturia 09/14/2023 Housing insecurity 03/04/2023 Overweight (BMI 25.0-29.9) 03/04/2023 Lymphadenopathy, thoracic 03/04/2023 Overview (02/08/2025): From Sarcoid diagnosis done in 10/2024 Polyarthralgia 03/04/2023 Cardiomyopathy 03/04/2023 History of cocaine use 03/04/2023 Health care maintenance 03/04/2023 Insomnia 01/20/2023 Essential hypertension 05/25/2021 History of non-ST elevation myocardial infarctio n (NSTEMI) 02/21/2021 Type 2 diabetes mellitus with hyperlipidemia Resolved Problems Problem Noted Date Diagnosed Date Resolved Date Dysuria 08/04/2024 02/08/2025 Sensation of plugged ear on right side 06/28/2024 02/08/2025 Acute otitis media 06/28/2024 Assessment & Plan (06/28/2024 11:27 AM EST): I prescribed for patient Augmentin twice a day for 1 week and acetaminophen as needed Leg pain 04/23/2023 07/23/2023 Depression 03/04/2023 08/07/2024 Assessment & Plan (03/05/2023 8:24 AM EST): [...] actions stage. PLAN: 1. Follow up with [facility]: Not recommended for follow-up 2. Patient goal is obtain assistance in paying rent or obtaining a smaller apartment 3. Behavioral Recommendations a. Utilize coping skills provided b. Engage in therapy once established c. Comply with case management d. Reach out to [facility] if additional support is needed Encounters * This document contains information received from the source organization and may not represent a complete record from that organization. Date Type Department Care Team Description 04/02/2025 Patient Outreach [facility] [address] [place] [phone] Ana María Greenwood MD Care Coordination (Appointment reminder) 03/30/2025 Refill [facility] [address] [place] [phone] Ana María Greenwood MD Chronic pain of both shoulders 03/19/2025 Patient Outreach [facility] [address] [place] [phone] Ana María Greenwood MD Care Coordination (Appointment reminder) 03/19/2025 Patient Outreach [facility] [address] [place] [address] [phone] Ana María Greenwood MD 03/16/2025 Telephone [facility] [address] [place] [address] [phone] Ana María Greenwood MD 03/14/2025 Telephone [facility] [address] [place] [address] [phone] Ana María Greenwood MD feb recall 03/12/2025 Patient Outreach [facility] [address] [place] [phone] Ana María Greenwood MD Care Coordination (Appointment reminder) 03/07/2025 Refill [facility] [address] [place] [address] [phone] Ana María Greenwood MD History of non-ST elevation myocardial infarction (NSTEMI); Essential hypertension; Old myocardial infarction 03/07/2025 Refill [facility] [address] [place] [phone] Samantha Wilkinson MD Type 2 diabetes mellitus with hyperlipidemia (HCC) 03/05/2025 Patient Outreach [address] [phone] Ana María Greenwood MD Care Coordination (SDOH) 03/05/2025 Patient Outreach [address] [phone] Ana María Greenwood MD Care Management ([facility]- f/u call) 02/21/2025 Patient Outreach [address] [phone] Ana María Greenwood MD Care Coordination ([facility] f/u) 02/20/2025 Patient Outreach [address] [phone] Ana María Greenwood MD Care Management ([facility]- f/u call) 02/13/[address] [phone] Ana María Greenwood MD 02/13/2025 Patient Outreach [address] [phone] Ana María Greenwood MD Care Management ([facility]- initial assessment/ enrollment) 02/13/2025 Plan of Care Documentation [address] [phone] 02/13/2025 Plan of Care Documentation [address] [phone] 02/09/2025 Patient Outreach [address] [phone] Ana María Greenwood MD Care Coordination (SD[facility]) 02/08/2025 10:15 AM EDT Office Visit [address] [address] Ana María Greenwood MD Chronic pain of both shoulders (Primary Dx); Type 2 diabetes mellitus with hyperlipidemia (HCC); Chronic pain of both knees; Memory loss; Encounter for vaccination; Encounter for immunization; Essential hypertension; Overweight (BMI 25.0-29.9); Health care maintenance; Polyarthralgia; Lymphadenopathy, thoracic; Sarcoid 02/08/2025 Travel 02/07/2025 Telephone [facility] [address] [place] [phone] Ana María Greenwood MD chart prep 02/07/2025 Refill [facility] [address] [place] [phone] Ana María Greenwood MD Type 2 diabetes mellitus with hyperlipidemia (HCC); Depression, unspecified depression type 01/16/2025 Patient Outreach [address] [phone] Ana María Greenwood MD Care Management ([facility]- initial assessment/ enrollment. lvm) 01/15/2025 Refill [facility] [address] [place] [phone] Ana María Greenwood MD 01/11/2025 Patient Outreach [address] [phone] Ana María Greenwood MD Care Coordination (CM/CHW outreach) 01/05/2025 1:30 PM EDT Office Visit [facility] [address] [place] [address] [phone] Von Bryan DDS Missing teeth, acquired (Primary Dx); Partial edentulism, unspecified edentulism class from Last 3 Months Immunizations Immunization Administration Dates Next Due HepB-CpG 07/28/2023,06/23/2023 Influenza injectable quadriv alent preservative free 03/03/2023,06/02/2022,02/21/2021 Influenza, seasonal, injecta ble, preservative free 02/08/2025,02/10/2024 Pfizer Covid-19 Vaccine 12+ 02/08/2025,1 ,03/08/2023,2020,06/27/2020,06/06/2020 Pfizer Covid-19 Vaccine 12+ Bivalent 06/02/2022 Pneumococcal [...] Sign Reading Time Taken Comments Blood Pressure 120/70 02/08/2025 10:31 AM EDT Pulse 59 02/08/2025 10:31 AM EDT Temperature 36.4 C (97.6 F) 02/08/2025 10:31 AM EDT Respiratory Rate 10 02/08/2025 10:31 AM EDT Oxygen Saturation 97% 02/08/2025 10:31 AM EDT Inhaled Oxygen Concentration - - Weight 82.6 kg (182 lb) 02/08/2025 10:31 AM EDT Height 172.7 cm (5' 8 ) 02/08/2025 10:31 AM EDT Body Mass Index 27.67 02/08/2025 10:31 AM EDT Plan of Treatment Upcoming Encounters Date Type Department Care Team (Late st Contact Info) Description 05/30/2025 2:30 PM EST Office Visit [facility] [address] [place] [address] Luciano, Shanti, OD [address] [place] [address] 06/27/2025 8:45 AM EST Office Visit [facility] [address] [place] [address] Carlos, Temi [address] [place] [address] Health Maintenance Due Date Last Done Comments CT Colonography 1962 FIT DNA/Cologuard 1962 FIT 1962 FOBT 1962 Sigmoidoscopy 1962 Colonoscopy 10/30/2016 10/31/2015 Colorectal Cancer Screening 10/30/2016 Diabetes: Foot Exam 11/24/2024 11/25/2023 Diabetes: Urine Protein Screening 12/29/2024 12/30/2023, 12/30/2023, 03/08/2023, Additional history exists Lipid Panel 12/29/2024 12/30/2023, 02/24, 03/04/2021 Diabetes: Hemoglobin A1C 05/11/2025 025, 10/02/2024, 12/30/2023, Additional history exists Dental Prophylaxis 06/14/2025 12/11/2024, 1 , 04/06/2017 Dental Oral Exam 07/06/2025 01/05/2025, , 04/06/2017, Additional history exists Alcohol/Substance Use Screening 08/03/2025 08/03/2024 Disability Screening 08/03/2025 08/03/2024 Depression Monitoring 09/09/2025 03/12/2025, 025 Dental X-Ray: Bitewings 12/12/2025 12/12/19 25, 03/16/2024, 03/09/2024, Additional history exists SDOH Screening 02/08/2026 02/08/2025 Tobacco Screening 02/08/2026 02/08/2025 Eye Exam 04/03/2026 04/03/2024, 12/12/2023, 04/03/2024, Additional history exists Dental X-Ray: Full Mouth 01/12/2027 024, 08/13/2016, 12/10/2008 DTaP/Tdap/Td Vaccines (2 - Td or Tdap) 10/30/2031 10/29/2021 Pneumococcal Vaccine: 50+ Years Completed 03/03/2023 HIV Screening Completed 03/08/2023 Hepatitis C Screening Completed 03/08/2023 RSV Patients and Patients Aged 60 years or older Completed 03/30/2023 Zoster Vaccines Completed 06/23/2023, 04/22/2023 Hepatitis B Vaccines Completed 07/28/2023, 06/23/19 24 COVID-19 Vaccine Completed 02/08/2025, , 03/08/2023, Additional history exists Influenza Vaccine Completed 02/08/2025, , 03/03/2023, Additional history exists HIB Vaccines Aged Out [...] age to complete this topic Meningococcal B Vaccine Aged Out No l onger eligible based on patient's age to complete [...] Weekly blood pressure task No Shaina Butler LPN Weekly blood pressure task Care Plan Weekly blood pressure task No Shaina Butler LPN Patient has chronic kidney disease Care Plan Patient has chronic kidney disease No Shaina Butler LPN Patient has chronic kidney disease Care Plan Patient has chronic kidney disease No Shaina Butler LPN Weekly blood pressure task Care Plan [...] Plan Patient has chronic kidney disease No Dmiple Ponce Weekly blood pressure task Care Plan Weekly blood pressure task No Dimple Pnoce Weekly blood pressure task Care Plan Weekly blood pressure task No Dimple Ponce Patient has chronic kidney disease Care Plan Patient has chronic kidney disease No Dimple Ponce Patient has chronic kidney disease Care Plan Patient has chronic kidney disease No Dimple Ponce Procedures Procedure Name Priority Date/Time Associated Diagnosis Comments POCT GLYCATED HEMOGLOBIN, TOTAL Routine 02/08/2025 10:35 AM EDT Type 2 diabetes mellitus with hyperlipidemia (HCC) POCT GLUCOSE Routine 02/08/2025 10:31 AM EDT Type 2 diabetes mellitus with hyperlipidemia (HCC) CASE PRESENTATION, DETAILED AND EXTENSIVE TREATMENT PLANNING Routine 01/05/2025 1:30 PM EDT PERIODIC ORAL EVALUATION - ESTABLISHED PATIENT Routine 01/05/2025 1:30 PM EDT PROPHYLAXIS - ADULT Routine 12/11/2024 2 :00 PM EDT Advanced periodontitis Dental calculus Missing teeth, acquired BITEWINGS - 4 RADIOGRAPHIC IMAGES Routine 12/11/2024 2:00 PM EDT Advanced periodontitis Dental calculus Missing teeth, acquired Generalized gingival recession, severe INTRAORAL - COMPLETE SERIES OF RADIOGRAPHIC IMAGES Routine 01/12/2024 10:00 AM EDT Advanced periodontitis Missing teeth, acquired Gingival bleeding Dental calculus ALBUMIN, RANDOM URINE W/CREATININE Routine 12/30/2023 9:50 [...] Recently Relevant to Health Maintenance Results * (ABNORMAL) POCT Hgb A1c (02/08/2025 10:35 AM EDT) Hemoglobin A1C 6.7(A) 4.0 - 5.7 % QC Media Lot # [id number] Lot# Expiration Date [id number] Blood 02/08/2025 10:3 5 AM EDT Ana María Monet MD POINT OF CARE RACHAEL T ENTER/EDIT ORDERABLES Final Result * POCT Glucose (02/08/2025 10:31 AM EDT) Glucose Blood, POC 128 60 - 200 mg/dL QC Media Lot # [id number] Lot# Expiration Date [id number] Blood Capillary blood specimen / Unknown 02/08/2025 10:31 AM EDT us Ana María Monet MD POINT OF CARE RACHAEL T ENTER/EDIT ORDERABLES Final Result * Albumin, Random Urine W/Creatinine (12/30/2023 9:50 AM EDT) Creatinine, Urine 125.49 mg/dL [facility] Microalbumin Urine 18.0 mg/L [facility] Microalbum Creatinine Ratio Ur 14.3 <30 ug/mg cr [facility] Comment:Albumin/Creatinine R atio Reference Ranges: Normal: < 30 ug/mg creatinine Microalbuminuria: 30 - 300 ug/mg creatinineClinical Albuminuria: > 300 ug/mg creatinine Urine (Urine, Random) 12/30/2023 9:50 AM EDT 12/30/2023 11:10 AM EDT us Ana María Monet MD LAB URINE ORDERAB LES Final Result Performing Organization Address City/State/[facility] Co de Phone Number [facility] [address] [place] [phone] * (ABNORMAL) Lipid Panel, Standard (12/30/2023 9:49 AM EDT) Triglycerides 100 <150 mg/dL [facility] Comment:Desirable Triglyceri de: less than 150 mg/dLBorderline High Triglyceride 150-199 mg/dLHigh Triglyceride: 200-499 mg/dLVery High Triglyceride: greater than or equal to 5OO mg/dL Cholesterol 98 <200 mg/dL [facility] Comment:Desirable Cholestero l: less than 200 mg/dLBorderline High Cholesterol: 200-239 mg/dLHigh Cholesterol: greater than 239 mg/dL LDL Cholesterol Calculated 43 <100 mg/dL [facility] Comment:Desirable LDL: less than 100 mg/dLNear Optimal/Above Optimal LDL: 110- 129 mg/dLBorderline High LDL: 130-159 mg/dLHigh LDL: 160-189 mg/dLVery High LDL: greater than or equal to 190 mg/dL HDL Cholesterol 35(L) >40 mg/dL [facility] Comment:Desirable HDL: great er than 40 mg/dL Note: This HDL assay may give artificially low results in patients with liver disease. Blood Venous blood specimen / Unknown 12/30/2023 9:49 AM EDT 12/30/2023 11:23 AM EDT us Ana María Monet MD LAB BLOOD ORDERAB LES Final Result Performing Organization Address [facility]/ZIP Co de Phone Number [facility] [address] [place] [phone] * Hepatitis C Antibody with Reflex to HCV, RNA, Quantitative, Real-Time PCR (03/08/2023 9:23 AM EST) Hepatitis C Antibody Nonreactive Nonreactive [facility] Comment:Antibodies to HCV no t detected; does not exclude early acuteHCV infection. Blood Venous blood specimen / Unknown 03/08/2023 9:23 AM EST 03/08/2023 11:03 AM EST us Ana María Monet MD LAB BLOOD ORDERAB LES Final Result Performing Organization Address [facility] Co de Phone Number [facility] [address] [place] [phone] * HIV-1/2 Antigen and Antibodies, Fourth Generation, with Reflexes (03/08/2023 9:23 AM EST) HIV AB/AG Nonreactive Nonreactive [facility] Comment:HIV-1 p24 Ag and/or HIV-1/HIV-2 Ab not detected.A test result that is nonreactive does not exclude thepossibility of exposure to or infection with HIV-1 and/orHIV-2. Nonreactive results in this assay for individualswith prior exposure to HIV-1 and/or HIV-2 may be due toantigen and antibody levels that are below the limit ofdetection of this assay.The Status [employer] Transport HIV Ag/Ab Combo assay result andsupplemental assay results should be interpreted inconjunction with the patient's clinical presentation,history and other laboratory results. If the results areinconsistent with clinical evidence, additional testing issuggested to confirm the result. Blood Venous blood specimen / Unknown 03/08/2023 9:23 AM EST 03/08/2023 11:03 AM EST us Ana María Monet MD LAB BLOOD ORDERAB LES Final Result [facility] [address] [place] [address] [phone] * Hm Colonoscopy (10/31/2015) Colonoscopy Normal Normal Narrative Tonia Bland - 10/31/2015 Repeat in one year due to poor preo us Historical Provider HEALTH MAINTENANCE Final Result from Last 3 Months or Most Recently Relevant to Health Maintenance Additional Health Concerns Active Problems Noted Date [...] 04/02/2025 Patient has chronic kidney disease 04/02/2025 Insurance [facility] C3 DENTAL-[facility] MEDICAID STAND ADULT Care Teams Boiling House Hand Relationship Specialty Start Date End Date Ana María Greenwood MD [address] [place] [address] PCP - General Internal Medicine 11/05/22 Deric Walker DPM [address] [place] [address] [address] [place] [address] Podiatry 12/01/24 Laurel Amanda [address] [place] [address] [address] [place] [address] Orthopaedic Surgery 12/01/24 Luis Alberto Bocanegra MD [address] [place] [address] [address] [place] [address] General Surgery 12/01/24 [facility] [address] [facility] 2[address] [place] [address] Cardiology 01/28/23 Gastroentrology ([facility]) [address] [facility] 3[address] [place] [address] Gastroenterology 01/28/23 Eye [facility] Las[facility] [address] [address] Ophthalmology 03/03/23 [facility] [address] [place] [address] Physical Therapy 07/22/23
--- OUTSIDE RECORDS SUMMARY | 2025-04-02 21:52 | XMS_ITS | Encounter Summary ---
Author Organization [employer] Address [address] [place] [address] 7t [place] [address] Care Team Providers Care Wet Pan Operator Name Role Phone Ana María Greenwood MD Primary Care Pro vider Deric Walker DPM Unavailable [phone] Laurel Amanda Unavailable Luis Alberto Bocanegra MD Unavailable [phone] Encounter Details Date Type Department Care Team (Late st Contact Info) Description 12/19/2024 Refill [facility] MEDICINE [address] [place], [place] [phone] Ana María Greenwood MD [address] [place], [place] [phone] Chronic pain of both shoulders Social History Tobacco Use Types Packs/Day Years Used Date Smoking Tobacco: Never Smokeless Tobacco: Never Alcohol Use Standard Drinks/Week Comments Yes 0 (1 standard drink = 0.6 oz pur e alcohol) beers socially Depression Answer Date Recorded Patient Health Questionnaire-9 Score 17 08/03/2024 Patient Health Questionnaire-9 Score 17 08/03/2024 Last PHQ-9: Questionnaire Data Not on file 0 08/03/2024 Housing Stability Answer Date Recorded What is your housing situation today? I have remy degorot 08/03/[address] you li ve. Do you have problems with any of the following? None of the above 08/03/2024 Food Insecurity Answer Date Recorded Within the past 12 months, y ou worried that your food would run out before you got money to buy more: Never True 08/03/2024 Within the past 12 months,th e food you bought just didn't last and you didn't have enough money to get more: Never True 01/2025 Transportation Answer Date Recorded In the past [...] Date Recorded Patient Health Questionnaire-2 Score 6 08/03/2024 Internet Access Answer Date Recorded Internet Access [...] encounter Miscellaneous Notes * Telephone Encounter - Ana María Monet MD - 12/19/2024 4:12 PM EDT Sent alreayd documented in this encounter Plan of Treatment Upcoming Encounters Date Type Department Care Team (Late st Contact Info) Description 05/30/2025 2:30 PM EST Office Visit [facility] OPTOMETRY [address] [place] [address] Luciano, Shanti, OD 230 [place] [address] 06/27/2025 8:45 AM EST Office Visit [facility] ADULT DENTAL 230 [place] [address] Carlos, Temi 230 [place] [address] documented as of this encounter Goals Goal Patient Goal Type Associated Problems Recent Progress Patient-Stated? Author Blood Pressure < 140/90 Blood Pressure 120/70(2024 10:31 AM EDT) No Davis Garber PharmD Hemoglobin A1c < 7 Result Component 6.7( 5 10:35 AM EDT) No Davis Garber PharmD documented as of this encounter Visit Diagnoses Diagnosis Chronic pain of both shoulders documented in this encounter Additional Health Concerns Assessment Noted Time PHQ-9 Depression Total Score: 17 025 10:49 AM EDT documented as of this encounter Care Teams Wet Pan Operator Relationship Specialty Start Date End Date Ana María Greenwood MD [address] [place] [address] PCP - General Internal Medicine 11/05/22 Deric Walker DPM [address] [place] [address] [address] [place] [address] Podiatry 12/01/24 Laurel Amanda [address] [place] [address] [address] [place] [address] Orthopaedic Surgery 12/01/24 Luis Alberto Bocanegra MD [address] [place] [address] 3rd [place] [address] General Surgery 12/01/24 [facility]ARD[facility]OLOG[facility] [address] [facility] 2nd Floor [address] [place] [address] Cardiology 01/28/23 Gastroentrology ([facility]) [address] [facility] 3rd Floor [address] [place] [address] Gastroenterology 01/28/23 Eye & Lasik 180 [facility] 1st [place] [address] Ophthalmology 03/03/23 [facility] [address] [place] [address] Physical Therapy 07/22/23 documented as of this encounter
--- OUTSIDE RECORDS SUMMARY | 2025-04-02 21:52 | XMS_ITS ---
Author Organization [employer] Address [address] [place] [address] 7t [place] [address] Care Team Providers Care Billing Specialist Name Role Phone Ana María Greenwood MD Primary Care Pro vider Deric Walker DPM Unavailable [phone] Laurel Amanda Unavailable Luis Alberto Bocanegra MD Unavailable [phone] [phone] Status:Enrolled (Active) Start date:08/04/2024 Enrollment date:02/08/2025 Enrollment reason:Referred by provider Overview PCP Referral- pt w poor memory and needs help w apts -thanks Please outreach for enrollment. Case Team Name Relationship Phone Dimple Ponce(Responsible Staff) [phone] Continued Care and Services Coordination
--- OUTSIDE RECORDS SUMMARY | 2025-04-02 21:52 | XMS_ITS | Encounter Summary ---
Author Organization [employer] Address [address] [facility] 7t [place] [address] Care Team Providers Care Digital Coordinator Name Role Phone Ana María Greenwood MD Primary Care Pro vider Deric Walker DPM Unavailable [phone] Laurel Amanda Unavailable Luis Alberto Bocanegra MD Unavailable [phone] Encounter Details Date Type Department Care Team (Late Contact Info) Description 03/12/[address] [facility] MEDICINE [address] [place], [place] [phone] Tonia Bland Social History Tobacco Use Types [...] Encounters Date Type Department Care Team (Late Contact Info) Description 05/30/2025 2:30 PM EST Office Visit [facility] OPTOMETRY [address] [place] [address] Shanti Wolf, OD 230 [place] [address] 06/27/2025 8:45 AM EST Office Visit [facility] ADULT DENTAL [address] [place] [address] Temi Gonzalez [address] [place] [address] documented as of this encounter Procedures Procedure Name Priority Date/Time Associated Diagnosis Comments COLONOSCOPY Routine 10/31/2015 documented in this encounter Results * Colonoscopy (10/31/2015) Colonoscopy Normal Normal Narrative Tonia Bland - 10/31/2015 Repeat in one year due to poor preo us Historical Provider HEALTH MAINTENANCE Final Result documented in this encounter Visit Diagnoses Not on filedocumented in this encounter Additional Health Concerns Assessment Noted Time PHQ-9 Depression Total Score: 15 023 7:53 AM EST documented as of this encounter Care Teams Digital Coordinator Relationship Specialty Start Date End Date Ana María Greenwood MD 230 [place] [address] PCP - General Internal Medicine 11/05/22 Deric Walker DPM [address] [facility] [address] [place] [address] Podiatry 12/01/24 Laurel Amanda [address] [place] [address] Orthopaedic Surgery 12/01/24 Luis Alberto Bocanegra MD [address] [facility] [address] 3rd [place] [address] General Surgery 12/01/24 [facility] CARDIOLOG[facility] [address] 2nd [address] [place] [address] Cardiology 01/28/23 Gastroentrology ([facility]) [address] 3rd [address] [place] [address] Gastroenterology 01/28/23 Eye & Lasik [address] [address] Ophthalmology 03/03/[address] [place] [address] Physical Therapy 07/22/23 documented as of this encounter
--- OUTSIDE RECORDS SUMMARY | 2025-04-02 21:52 | XMS_ITS ---
Author Organization [employer] Address [address] [place] [address] 7t [place] [address] Care Team Providers Care Shaker Out Name Role Phone Ana María Greenwood MD Primary Care Pro vider Deric Walker DPM Unavailable [phone] Laurel Amanda Unavailable Luis Alberto Bocanegra MD Unavailable [phone] Complex Status:Enrolled (Active) Start date:08/04/2024 Enrollment date:02/08/2025 Enrollment reason:Referred by provider Overview PCP Referral- pt w poor memory and needs help w apts -thanks Case Team Name Relationship Phone Alex Gregorio RN(Responsible Staff) Registered Nurse [phone] Continued Care and Services Coordination
--- OUTSIDE RECORDS SUMMARY | 2025-04-02 21:52 | XMS_ITS | Encounter Summary ---
Author Organization [employer] Address [address] [facility] 7t [place] [address] Care Team Providers Care Communications Controller Name Role Phone Ana María Greenwood MD Primary Care Pro vider Deric Walker DPM Unavailable [phone] Laurel Amanda Unavailable Luis Alberto Bocanegra MD Unavailable [phone] Encounter Details Date Type Department Care Team (Late st Contact Info) Description 12/19/2024 Telephone [facility] MEDICINE [address] [place], [place] [phone] Ana María Greenwood MD [address] [place], [place] [phone] Social History Tobacco Use Types Packs/Day Years [...] is your housing situation today? I have remynick degroot 08/03/[address] you li [...] Description 05/30/2025 2:30 PM EST Office Visit [facility] OPTOMETRY [address] [place] [address] Luciano, Shanti, OD 230 [place] [address] 06/27/2025 8:45 AM EST Office Visit [facility] ADULT DENTAL [address] [place] [address] Carlos, Temi 230 [place] [address] documented as of this encounter Goals Goal [...] documented as of this encounter Care Teams Communications Controller Relationship Specialty Start Date End Date Ana María Greenwood MD [address] [place] [address] PCP - General Internal Medicine 11/05/22 Deric Walker DPM [address] [facility] [address] [place] [address] Podiatry 12/01/24 Laurel Amanda [address] [place] [address] DRIVE [address] [place] [address] Orthopaedic Surgery 12/01/24 Luis Alberto Bocanegra MD [address] [place] [address] Dr 3rd [place] [address] General Surgery 12/01/24 [facility] CARDIOLOGY [address] [facility] 2nd Floor [address] [place] [address] Cardiology 01/28/23 Gastroentrology ([facility]) [address] 3rd [address] [place] [address] Gastroenterology 01/28/23 Eye & Lasik 180 [facility] 1st [place] [address] Ophthalmology 03/03/23 [facility] [address] [place] [address] Physical Therapy 07/22/23 documented as of this encounter
--- OUTSIDE RECORDS SUMMARY | 2025-04-02 21:52 | XMS_ITS | Encounter Summary ---
Author Organization [employer] Address [address] [place] [address] 7t [place] [address] Care Team Providers Care Business Excellence Manager Name Role Phone Ana María Greenwood MD Primary Care Pro vider Deric Walker DPYana Unavailable [phone] Laurel Amanda Unavailable Luis Alberto Bocanegra MD Unavailable Reason for Visit * Reason Comments Med Refill Encounter Details Date Type Department Care Team (Late st Contact Info) Description 12/13/2024 Refill [facility] [address] [place], [place] [phone] Ana María Greenwood MD [address] [place], [place] [phone] Chronic pain of both shoulders Social History [...] housing situation today? I have remy degroot 08/03/[address] you [...] Description 05/30/2025 2:30 PM EST Office Visit [facility] OPTOMETRY [address] [place] [address] Luciano, Shanti, OD 230 [place] [address] 06/27/2025 8:45 AM EST Office Visit [facility] ADULT DENTAL [address] [place] [address] Carlos, Temi [address] [place] [address] documented as of this encounter Goals Goal Patient Goal Type Associated Problems Recent Progress Patient-Stated? Author Blood Pressure < 140/90 Blood Pressure 120/70(2024 10:31 AM EDT) No Davis Garber, Claire Hemoglobin A1c < 7 Result Component 6.7( 10:35 AM EDT) No Davis Garber PharmD documented as of this encounter Visit Diagnoses Diagnosis Chronic pain of both shoulders documented in this encounter Additional Health Concerns Assessment Noted Time PHQ-9 Depression Total Score: 17 025 10:49 AM EDT documented as of this encounter Care Teams Business Excellence Manager Relationship Specialty Start Date End Date Ana María Greenwood MD [address] [place] [address] PCP - General Internal Medicine 11/05/22 Deric Walker DPM [address] [place] [address] [address] [place] [address] Podiatry 12/01/24 Laurel Amanda [address] [place] [address] [address]IVE [address] [place] [address] Orthopaedic Surgery 12/01/24 Luis Alberto Bocanegra MD [address] [place] [address] 3rd [place] [address] General Surgery 12/01/24 [facility] [address] [facility] 2nd Floor [address] [place] [address] Cardiology 01/28/23 Gastroentrology ([facility]) [address] [facility] 3rd Floor [address] [place] [address] Gastroenterology 01/28/23 Eye & Lasik 180 [facility] 1st [place] [address] Ophthalmology 03/03/23 [facility] [address] [place] [address] Physical Therapy 07/22/23 documented as of this encounter
== END 2025-04-02 14:05 | disposition home or self-care (01) ==
LOC: HO.HOS 13:06
PROVIDERS: PCP Student in an Organized Health Care Education/Training Program
DX: M17.0 Bilateral primary osteoarthritis of knee (principal)
CPT/HCPCS: 99213

== ENCOUNTER → 2025-04-02 13:19 | Outpatient (BNV) | payer MEDICAID, SELFPAY | PROVIDERS: Visit Provider Radiology Diagnostic Ultrasound | DX: M17.0 Bilateral primary osteoarthritis of knee (principal) | CPT/HCPCS: 73565 ==